=== PATIENT | female | born 1965 | race Caucasian/White ===

== ENCOUNTER → 2019-02-14 13:16 | Outpatient (CLI) | payer OTHER, SELFPAY | PROVIDERS: Family Provider Family Medicine; PCP Family Medicine; Visit Provider Physician Assistant | DX: R30.0 Dysuria (principal) | CPT/HCPCS: 87086 ==

== ENCOUNTER → 2019-02-18 12:35 | Outpatient (CLI) | payer OTHER, SELFPAY | PROVIDERS: PCP Family Medicine; Visit Provider Family Medicine | DX: R20.2 Paresthesia of skin (principal) | CPT/HCPCS: 95885; 95886; 95908 ==

== ENCOUNTER → 2019-03-22 08:48 | Outpatient (CLI) | payer OTHER, SELFPAY ==
--- NOTE | 2019-03-22 08:50 | DI.RAD.S_ITS ---
PROCEDURE: XR FOOT LT MIN 3V INDICATIONS: Left foot paresthesias TECHNIQUE: 3 views of the foot were acquired. COMPARISON: None. FINDINGS: Bones: No fractures or dislocations. No suspicious bony lesions. Soft tissues: No tibiotalar joint effusion. Achilles tendon appears normal. IMPRESSION: Minimal degenerative thinning of the first MTP joint, no trauma found, no microvascular calcifications seen. Dictated by: Nestor Whatley M.D. on 03/22/2019 at 9:41 Approved by: Nestor Whatley M.D. on 03/22/2019 at 9:41
--- NOTE | 2019-03-22 08:50 | DI.RAD.S_ITS ---
PROCEDURE: XR LUMBAR SPINE MIN 4V INDICATIONS: Lumbosacral spondylosis TECHNIQUE: 4 views of the lumbar spine were acquired. COMPARISON: None. FINDINGS: Bones: 5 nonrib-bearing vertebrae are present. There is normal bony alignment. No vertebral body compression fractures. No suspicious bony lesions. Degenerative disc disease is minimal along the lumbosacral spine except at L4-L5 where moderate degenerative disc disease can be seen with disc height reduction and facet osteoarthritis at this level and at L5-S1 is moderate to moderately severe. Soft tissues: Overlying bowel gas pattern is normal. No suspicious soft tissue calcifications. Oblique images: No pars defects. IMPRESSION: No compression fracture found. Moderate degenerative disc disease is present at L45 and present to a slightly lesser degree at L5-S1 with associated facet osteoarthritis moderate at L4-5 and moderately severe at L5-S1. Spinal and foraminal stenosis at these 2 levels would be expected. Dictated by: Nestor Whatley M.D. on 03/22/2019 at 9:42 Approved by: Nestor Whatley M.D. on 03/22/2019 at 9:43
== END ==
PROVIDERS: PCP Family Medicine; Visit Provider Physical Medicine & Rehabilitation
DX: M47.817 Spondylosis without myelopathy or radiculopathy, lumbosacral region (principal); R20.2 Paresthesia of skin; M19.072 Primary osteoarthritis, left ankle and foot; M51.36 Other intervertebral disc degeneration, lumbar region; M51.37 Other intervertebral disc degeneration, lumbosacral region; M47.816 Spondylosis without myelopathy or radiculopathy, lumbar region
CPT/HCPCS: 72110; 73630

== ENCOUNTER → 2019-03-30 18:21 | Outpatient (CLI) | payer OTHER, SELFPAY ==
--- NOTE | 2019-03-30 18:23 | DI.MRI.S_ITS ---
PROCEDURE: MR LUMBAR SPINE WO CON INDICATIONS: Lumbosacral spondylosis with left lower extremity TECHNIQUE: Noncontrast sagittal T1 spin echo and T2 fast echo, sagittal STIR, axial T1 and T2 fast spin echo through the lumbar spine. In cases with scoliosis, additional coronal T2 fast spin echo may be performed. COMPARISON: None. FINDINGS: Image quality: Excellent. Alignment and Curvature: There is normal bony alignment. Bone Marrow: Reactive endplate change is noted adjacent to the L4-L5 and L5-S1 discs. Benign intraosseous hemangiomas noted in the L1 vertebral body.. No acute vertebral body compression fractures. Spinal Cord: Conus medullaris terminates at the L1 level. Visualized cord demonstrates normal signal and size. Paraspinous Soft Tissues: No paravertebral masses. L1-L2: Loss of disc signal and slight loss of disc height. Mild, diffuse disc bulge. No central stenosis. No neural foraminal narrowing. No neural impingement. Focal high intensity zone within the posterior annulus compatible with a fissure. L2-L3: Loss of signal. No central stenosis. No neural foraminal narrowing. No neural impingement. L3-L4: Loss of the signal. Mild bilateral facet hypertrophy. Mild narrowing of the central canal. No neural foraminal narrowing. No neural impingement. L4-L5: Loss of disc signal and height. Mild, diffuse disc bulge. Mild bilateral facet hypertrophy. Mild ligamentum flavum hypertrophy. Mild to moderate narrowing of the central canal. Mild to moderate bilateral neural foraminal narrowing. No neural impingement. Focal high intensity zones noted in the annulus compatible with fissures. L5-S1: Loss of disc signal. Mild, diffuse disposed. Mild bilateral facet hypertrophy. No central stenosis. Mild bilateral neural foraminal narrowing. No neural impingement. Focal high intensity zones noted in the posterior annulus compatible with fissures. IMPRESSION: 1. Multilevel degenerative disc disease. 2. Multilevel facet arthropathy. 3. Mild to moderate L4-L5 central canal narrowing. Mild L3-L4 central canal narrowing. 4. Mild to moderate bilateral L4-L5 and neural foraminal narrowing. Mild bilateral L5-S1 neural foraminal narrowing. 5. No neural impingement. 6. L1-L2, L4-L5 and L5-S1 disc annulus fissures. Dictated by: Savanah Marie MD, PhD on 03/31/2019 at 17:00 Approved by: Savanah Marie MD, PhD on 03/31/2019 at 17:07
== END ==
PROVIDERS: PCP Family Medicine; Visit Provider Physical Medicine & Rehabilitation
DX: M47.816 Spondylosis without myelopathy or radiculopathy, lumbar region (principal); M47.817 Spondylosis without myelopathy or radiculopathy, lumbosacral region; M51.36 Other intervertebral disc degeneration, lumbar region; M51.37 Other intervertebral disc degeneration, lumbosacral region; M48.061 Spinal stenosis, lumbar region without neurogenic claudication; M48.07 Spinal stenosis, lumbosacral region; Q05.7 Lumbar spina bifida without hydrocephalus; R20.2 Paresthesia of skin
CPT/HCPCS: 72148

== ENCOUNTER → 2019-04-16 13:29 | Outpatient (CLI) | payer OTHER, SELFPAY ==
[2019-04-16 14:14] LABS: Appearance Urine UA CLEAR; Bilirubin Urine UA NEGATIVE (NEGATIVE); Color Urine UA YELLOW; Glucose Urine UA NEGATIVE (Negative); Ketones Urine UA NEGATIVE (NEGATIVE); Leukocyte Esterase Urine UA NEGATIVE (NEGATIVE); Nitrite Urine UA NEGATIVE (Negative); Occult Blood Urine UA TRACE-LYSED (Negative); Protein Urine UA NEGATIVE (Negative); Specific Gravity Urine UA <=1.005 (1.000-1.035); Urobilinogen Urine UA 0.2 E.U./dL (0.2)
== END ==
PROVIDERS: PCP Family Medicine; Visit Provider Family Medicine
DX: R30.0 Dysuria (principal)
CPT/HCPCS: 81003

== ENCOUNTER 2019-05-06 14:40 | Outpatient (CLI) | payer OTHER, SELFPAY ==
[2019-05-06] VITALS (7 sets, daily range): BP systolic 108–126; BP diastolic 72–83; PULSE 54–62; RESP 16; TEMP 36.8; O2SAT 96–98
--- NOTE | 2019-05-06 14:42 | DI.RAD.S_ITS ---
PROCEDURE: PAIN L/S TRANSFORAMINAL INJECT INDICATIONS: SPONDYLOSIS FINDINGS: Fluoroscopic spot filming was performed to verify placement of spinal needles at the left L4-5 neural foramen region level(s), as labeled on the films. Appropriate location(s) of the needle tip(s) was confirmed by injection of iodinated contrast. IMPRESSION: Successful left-sided needle tip localization were L4-L5 transforaminal epidural steroid injection. Dictated by: Nestor Whatley M.D. on 05/06/2019 at 16:21 Approved by: Nestor Whatley M.D. on 05/06/2019 at 16:22
--- NOTE | 2019-05-06 15:06 | P.PCN_ITS ---
Procedures Date/Time Date of procedure: 05/06/19 Time of procedure: 15:06 General Procedure description: PREOP DIAGNOSIS 1. FORMAINAL STENOSIS WITH LE SYMPTOMS POST OP DIAGNOSIS 1. FORMAINAL STENOSIS WITH LE SYMPTOMS PROCEDURES 1. FLUOROSCOPICALLY GUIDED CONTRAST CONTROLLED TRANSFORAMINAL EPIDURAL STEROID INJECTION - LEFT L4/5 PHYSICIAN: Royce Wilkins DO INDICATIONS: Dae is referred by Dr. Wellington for treatment of Foraminal Stenosis with Left LE Symptoms FINDINGS Foraminal Nerve Root Compression secondary to disc disease and facet hypertrophy DESCRIPTION OF PROCEDURE: Following review of allergy and review of potential side effects and complications, including, but not necessarily limited to, infection, allergic reaction, local tissue breakdown, stroke, temporary or permanent nerve injury, paralysis, and possible , the patient indicated that the patient understood and agreed to proceed. An informed consent document was signed by the patient, witnessed by a nurse, and placed in the patient's chart. Additionally, other treatment options including medications, modalities, and physical therapy were reviewed with the patient. After review of previous anaesthesic history and IV conscious sedation the patient was deemed safe to proceed with todays procedure with IV conscious sedation as ASA class II designation. Safety time-out was performed to confirm patient ID, procedure to be performed and site of procedure. IV sedation was accomplished with a combination of 2mg of Versed and 50mcg of Fentanyl administered by the RN after DO order, titrated to patient comfort during the course of the procedure while the patient remained responsive to all verbal commands In the prone position following sterile prep and drape of the lumbar region, the left L4/5 posterior neuroforamen was identified fluoroscopically. The skin was anesthetized via a 25-gauge 1.5-inch needle with 1% lidocaine solution. At this point, a 25-gauge 3.5-inch spinal needle was atraumatically introduced and advanced under fluoroscopic guidance through the posterior left L4/5 neuroforamen to approximately the anterior aspect of the canal. Depth was confirmed on lateral view. Following negative aspiration, injection of appro ximately 1.5 cc of Isovue 200 under live fluoroscopy in the AP view confirmed excellent flow along the nerve root, into the epidural space without vascular or intrathecal uptake observed Radiological data, including multiple fluoroscopic views of the lumbosacral spine, reveal a spinal needle at the left L4/5 posterior neuroforamen. Subsequent views show flow of contrast material flowing superiorly and inferiorly along the nerve root confirming epidural flow. Subsequently, a test dose of 1.5 cc of 1% lidocaine solution was administered and patient was observed for two minutes for signs or symptoms of complications, including abdominal pain, shortness of breath, bilateral upper or lower extremity weakness, nausea and vomiting, prior to steroid injection. At this point, a total of 3cc or 20mg of dexamethasone and 6mg betamethasone was injected without incident. The procedure tolerated the procedure well without signs or symptoms of complications prior to transfer to the recovery area continued monitoring without incident. The patient was then transferred to the recovery area where they were observed for an appropriate time after the injection. The patient reported a VAS score of 7 prior to the procedure and a post- procedure VAS of 0. Total Fluoroscopy Time: 20.9 seconds Total Conscious Sedation Time: 24min POST OP INSTRUCTIONS The patient was provided a Pain Log to continue to record their response to the target-specific procedure prior to follow-up visit with their referring physician. Additionally, specific post-injection care instructions and a contact number to our office were provided if concerns arise regarding possible complications associated with the procedure are suspected. Royce Wilkins DO Complications: none
[2019-05-06] MEDS: MIDAZOLAM 5 MG/5 ML VIAL IV (15:23)
[2019-05-06] MEDS: fentaNYL 100 MCG/2 ML INJ 50 MCG IV (15:23)
[2019-05-06] MEDS: BUPIVACAINE 0.25% (PF) VIAL 2 ML INJ (15:32)
[2019-05-06] MEDS: IOPAMIDOL 15 ML VIAL 3 ML INJ (15:32)
[2019-05-06] MEDS: DEXAMETHASONE 10 MG/ML VIAL 20 MG INJ (15:33)
[2019-05-06] MEDS: BETAMETHASONE 30 MG/5 ML MDV 6 MG INJ (15:33)
--- NOTE | 2019-05-06 15:38 | PC.NURSE ---
ASSISTING PT OFF TABLE AND TRANSPORTING TO POST PROC AREA IN STABLE CONDITION.
== END 2019-05-06 16:24 | disposition home or self-care (01) ==
LOC: RAD 14:41
PROVIDERS: PCP Family Medicine; Visit Provider Physical Medicine & Rehabilitation
DX: M48.061 Spinal stenosis, lumbar region without neurogenic claudication (principal); M51.16 Intervertebral disc disorders with radiculopathy, lumbar region
CPT/HCPCS: 64483; 99152; J0702; J1100; J2250; J3010

== ENCOUNTER → 2019-07-24 08:43 | Outpatient (CLI) | payer OTHER, SELFPAY ==
[2019-07-24 09:34] LABS: Add Manual Diff / Slide Review NO; Basophils Absolute Auto 0 /uL (0-100); Basophils Percent Auto 0.2 % (0-2); Eosinophils Absolute Auto 200 /uL (0-450); Hematocrit 39.5 % (36-46); Hemoglobin 13.2 g/dL (12.0-16.0); Lymphocytes Absolute Auto 1800 /uL (1100-4500); Lymphocytes Percent Auto 36.1 % (25-40); Mean Corpuscular HGB Conc 33.5 % (30-36); Mean Corpuscular Hemoglobin 29.5 PG (26-34); Mean Corpuscular Volume 88.3 fL (80-100); Monocytes Absolute Auto 400 /uL (0-900); Monocytes Percent Auto 7.7 % (3-14); Neutrophils Absolute Auto 2500 /uL (1500-7000); Platelet Count 209 X10^3/uL (150-400); Red Blood Cell Count 4.48 X10^6/uL (4.0-5.2); Red Cell Distribution Width 13.6 % (11.6-14.8); White Blood Cell Count 4.9 X10^3/uL (4.5-11.0)
[2019-07-24 09:51] LABS: Alanine Aminotransferase 15 IU/L (<35); Albumin 4.4 g/dL (3.5-5.0); Albumin Globulin Ratio 1.7 (1.0-2.8); Alkaline Phosphatase 64 U/L (38-126); Aspartate Aminotransferase 20 IU/L (14-36); BUN Creatinine Ratio 25.7 (6-22); Bilirubin Total 0.7 mg/dL (0.2-1.3); Blood Urea Nitrogen 18 mg/dL (7-17); Calcium 9.5 mg/dL (8.4-10.2); Carbon Dioxide 30 mmol/L (22-32); Chloride 105 mmol/L (98-107); Cholesterol 218 mg/dL (140-199); Estimated Glomerular Filt Rate > 60.0 mL/min (>60); Globulin 2.6 g/dL (1.7-4.1); Glucose 96 mg/dL (70-100); HDL Cholesterol 74 mg/dL (40-60); HEMOLYSIS < 15 (0-50); LDL Cholesterol Calculated 128 mg/dL (<100); Potassium 4.6 mmol/L (3.4-5.1); Sodium 142 mmol/L (137-145); Triglycerides 78 mg/dL (35-150)
[2019-07-24 10:20] LABS: Thyroid Stimulating Hormone 1.09 uIU/mL (0.47-4.68)
== END ==
PROVIDERS: PCP Family Medicine; Visit Provider Physician Assistant
DX: Z00.00 Encounter for general adult medical examination without abnormal findings (principal); Z13.220 Encounter for screening for lipoid disorders; Z13.6 Encounter for screening for cardiovascular disorders
CPT/HCPCS: 36415; 80053; 80061; 84443; 85025

== ENCOUNTER → 2020-04-22 14:08 | Outpatient (CLI) | payer OTHER, SELFPAY ==
--- NOTE | 2020-04-22 14:10 | DI.MG.S_ITS ---
BILATERAL DIGITAL SCREENING MAMMOGRAM 3D/2D WITH CAD: 04/22/2020 CLINICAL: Routine screening. Family history of breast cancer. Comparison is made to exams dated: 08/31/2018 mammogram, 07/30/2017 mammogram, and 07/04/2016 mammogram - [facility]. The tissue of both breasts is heterogeneously dense. This may lower the sensitivity of mammography. Current study was also evaluated with a Computer Aided Detection (CAD) system. No significant masses, calcifications, or other findings are seen in either breast. There has been no significant interval change. IMPRESSION: NEGATIVE There is no mammographic evidence of malignancy. A 1 year screening mammogram is recommended. This exam was interpreted at Station ID: [id number]. NOTE: For mammograms, a report in lay terms will be sent to the patient. Approximately 15% of breast malignancies will not be visualized mammographically. In the management of a palpable breast mass, a negative mammogram must not discourage biopsy of a clinically suspicious lesion. Electronically Signed By: Renaldo haq/maria fernanda:04/24/2020 07:57:56 letter sent: Normal Exam ACR BI-RADS Category 1: Negative [id number]
== END ==
PROVIDERS: PCP Family Medicine; Referring Provider Family Medicine; Visit Provider Family Medicine
DX: Z12.31 Encounter for screening mammogram for malignant neoplasm of breast (principal); Z80.3 Family history of malignant neoplasm of breast
CPT/HCPCS: 77063; 77067

== ENCOUNTER → 2020-10-03 15:32 | Outpatient (CLI) | payer OTHER, SELFPAY ==
[2020-10-03 16:28] LABS: Hematocrit 38.5 % (36-46); Hemoglobin 13.1 g/dL (12.0-16.0); Mean Corpuscular HGB Conc 34.1 % (30-36); Mean Corpuscular Volume 88.2 fL (80-100); Platelet Count 199 X10^3/uL (150-400); Red Blood Cell Count 4.37 X10^6/uL (4.0-5.2); White Blood Cell Count 5.3 X10^3/uL (4.5-11.0)
[2020-10-03 16:44] LABS: Blood Urea Nitrogen 17 mg/dL (7-17); Calcium 9.4 mg/dL (8.4-10.2); Carbon Dioxide 29 mmol/L (22-32); Chloride 103 mmol/L (98-107); Cholesterol 264 mg/dL (140-199); Estimated Glomerular Filt Rate > 60.0 mL/min (>60); Glucose 95 mg/dL (70-100); HDL Cholesterol 93 mg/dL (40-60); HEMOLYSIS < 15 (0-50); LDL Cholesterol Calculated 150 mg/dL (<100); Sodium 139 mmol/L (137-145); Triglycerides 103 mg/dL (35-150)
[2020-10-03 17:05] LABS: Vitamin D 25 Hydroxy (D3) 19.4 ng/mL (30.0-100.0)
[2020-10-03 17:17] LABS: TSH w/ Reflex to FT4 3.73 uIU/mL (0.47-4.68)
== END ==
PROVIDERS: PCP Student in an Organized Health Care Education/Training Program; Referring Provider Student in an Organized Health Care Education/Training Program; Visit Provider Student in an Organized Health Care Education/Training Program
DX: E03.9 Hypothyroidism, unspecified (principal); F32.9 Major depressive disorder, single episode, unspecified; Z13.220 Encounter for screening for lipoid disorders; E55.9 Vitamin D deficiency, unspecified; F41.0 Panic disorder [episodic paroxysmal anxiety]; Z79.899 Other long term (current) drug therapy
CPT/HCPCS: 36415; 80048; 80061; 82306; 84443; 85027

== ENCOUNTER → 2021-04-10 11:48 | Outpatient (CLI) | payer OTHER, SELFPAY ==
--- NOTE | 2021-04-10 11:50 | DI.RAD.S_ITS ---
PROCEDURE: XR CHEST 2V INDICATIONS: Chest wall pain TECHNIQUE: 2 views of the chest were acquired. COMPARISON: None. FINDINGS: Surgical changes and devices: None. Lungs and pleura: Lungs are clear. No pleural effusions or pneumothorax. Mediastinum: Mediastinal contours are normal. Heart size is normal. Bones and chest wall: No suspicious bony abnormalities. Soft tissues appear unremarkable. IMPRESSION: No source for chest pain identified radiographically. Dictated by: Wally Washburn RR Interpreted: Renaldo Duff MD on 04/10/2021 at 12:45 Transcribed by: MARC on 04/10/2021 at 12:46 Approved by: Renaldo Duff M.D. on 04/10/2021 at 15:02
== END ==
PROVIDERS: PCP Student in an Organized Health Care Education/Training Program; Referring Provider Student in an Organized Health Care Education/Training Program; Visit Provider Student in an Organized Health Care Education/Training Program
DX: R07.89 Other chest pain (principal)
CPT/HCPCS: 71046

== ENCOUNTER → 2021-05-03 09:12 | Outpatient (CLI) | payer OTHER, SELFPAY ==
--- NOTE | 2021-05-03 09:12 | DI.MG.S_ITS ---
BILATERAL DIGITAL DIAGNOSTIC MAMMOGRAM 3D/2D: 05/03/2021 CLINICAL: Left breast/chest pain. Comparison is made to exams dated: 04/22/2020 mammogram - [facility], 08/31/2018 mammogram, and 07/30/2017 mammogram - [facility]. The tissue of both breasts is heterogeneously dense. This may lower the sensitivity of mammography. No significant masses, calcifications, or other findings are seen in either breast. IMPRESSION: INCOMPLETE: NEEDS ADDITIONAL IMAGING EVALUATION There is no abnormality seen in the left breast to correspond with the area of clinical concern and pain, however, ultrasound is recommended and is scheduled to immediately follow this exam. This exam was interpreted at Station ID: [id number]. NOTE: For mammograms, a report in lay terms will be sent to the patient. Approximately 15% of breast malignancies will not be visualized mammographically. In the management of a palpable breast mass, a negative mammogram must not discourage biopsy of a clinically suspicious lesion. Electronically Signed By: Renaldo Duff M.D. aty/:05/03/2021 11:00:30 ACR BI-RADS Category 0: Incomplete [id number]
--- NOTE | 2021-05-03 09:12 | DI.US.S_ITS ---
ULTRASOUND OF LEFT BREAST AND AXILLA: 05/03/2021 CLINICAL: Diffuse left breast pain. Comparison is made to exams dated: 05/03/2021 mammogram, 04/22/2020 mammogram - [facility], 08/31/2018 mammogram, 07/30/2017 mammogram, 07/04/2016 mammogram, and 07/04/2016 ultrasound - [facility]. Color flow and real-time ultrasound of the left breast axilla were performed. Rowe scale images of the real-time examination were reviewed. There is a 0.7 cm x 0.5 cm x 0.6 cm oval cyst in the left breast at 11 o'clock middle depth 2 cm from the nipple. This oval cyst is hypoechoic with internal echoes and no posterior acoustic shadowing or enhancement. This was not seen on today's mammogram. Color flow imaging demonstrates that there is no vascularity present. There also is a 0.4 cm x 0.3 cm x 0.4 cm oval cyst in the left breast at 1 o'clock posterior depth 5 cm from the nipple. This oval cyst is hypoechoic with internal echoes. This was not seen on today's mammogram. Color flow imaging demonstrates that there is no vascularity present. Additionally, there is heterogeneous, dense fibroglandular tissue in areas of patient pain without focal mass or disturbed echotexture. No significant abnormalities were seen sonographically in the left axilla. IMPRESSION: PROBABLY BENIGN The 0.7 cm x 0.5 cm x 0.6 cm oval cyst in the left breast at 11 o'clock middle depth is consistent with a complicated cyst and is probably benign. The 0.4 cm x 0.3 cm x 0.4 cm oval cyst in the left breast at 1 o'clock posterior depth is consistent with a complicated cyst and is probably benign. There is no abnormality seen in the left breast to correspond with the area of clinical concern and pain in the left axilla in the sub-areolar depth. Recommend clinical follow up for persistent or worsening symptoms, or development of any clinically suspicious findings. A follow-up left mammogram and an ultrasound in 6 months is recommended to demonstrate stability. Findings and recommendations were conveyed to the patient during today's evaluation. This exam was interpreted at Station ID: [id number]. Electronically Signed By: Renaldo Duff M.D. aty/:05/03/2021 17:52:25 letter sent: Clinical Evaluation Ultrasound BI-RADS: 3 Probably benign
== END ==
PROVIDERS: PCP Student in an Organized Health Care Education/Training Program; Referring Provider Student in an Organized Health Care Education/Training Program; Visit Provider Student in an Organized Health Care Education/Training Program
DX: N60.02 Solitary cyst of left breast (principal); N64.4 Mastodynia; R92.2 Inconclusive mammogram; R07.89 Other chest pain
CPT/HCPCS: 76642; 77066; G0279

== ENCOUNTER → 2021-10-26 09:19 | Outpatient (CLI) | payer OTHER, SELFPAY ==
--- NOTE | 2021-10-26 09:20 | DI.MG.S_ITS ---
UNILATERAL LEFT DIGITAL DIAGNOSTIC MAMMOGRAM 3D/2D: 10/26/2021 CLINICAL: Short term follow up for the left breast. Comparison is made to exams dated: 05/03/2021 ultrasound, 05/03/2021 mammogram, and 04/22/2020 mammogram - [facility]. The tissue of left breast is heterogeneously dense. This may lower the sensitivity of mammography. No significant masses, calcifications, or other findings are seen in the breast. IMPRESSION: INCOMPLETE: NEEDS ADDITIONAL IMAGING EVALUATION There is no mammographic evidence of malignancy. A targeted ultrasound of the left breast is recommended to evaluate the previous ultrasound findings and will be performed immediately following this exam. This exam was interpreted at Station ID: [id number]. NOTE: For mammograms, a report in lay terms will be sent to the patient. Approximately 15% of breast malignancies will not be visualized mammographically. In the management of a palpable breast mass, a negative mammogram must not discourage biopsy of a clinically suspicious lesion. Electronically Signed By: Alaina flores/:10/29/2021 09:55:29 Entry: - 10/29/2021 09:56:30 ACR BI-RADS Category 0: Incomplete [id number]
--- NOTE | 2021-10-26 09:20 | DI.US.S_ITS ---
ULTRASOUND OF LEFT BREAST: 10/26/2021 CLINICAL: 6 month follow-up of cysts. Comparison is made to exams dated: 10/26/2021 mammogram, 05/03/2021 ultrasound, and 05/03/2021 mammogram - [facility]. Color flow ultrasound of the left breast was performed on the areas of interest. Rowe scale images of the real-time examination were reviewed. There is a stable 0.7 cm x 0.5 cm x 0.6 cm oval cyst in the left breast at 11 o'clock middle depth 2 cm from the nipple. This oval cyst is hypoechoic with internal echoes and no posterior acoustic shadowing or enhancement. This was not seen on the prior mammogram. Color flow imaging demonstrates that there is no vascularity present. There also is a stable 0.4 cm x 0.3 cm x 0.4 cm oval cyst in the left breast at 1 o'clock posterior depth 5 cm from the nipple. This oval cyst is hypoechoic with internal echoes. This was not seen on the prior mammogram. Color flow imaging demonstrates that there is no vascularity present. IMPRESSION: PROBABLY BENIGN The stable 0.7 cm x 0.5 cm x 0.6 cm oval cyst in the left breast at 11 o'clock middle depth is consistent with a complicated cyst and is probably benign. The stable 0.4 cm x 0.3 cm x 0.4 cm oval cyst in the left breast at 1 o'clock posterior depth is consistent with a complicated cyst and is probably benign. A follow-up diagnostic mammogram and a left ultrasound in 6 months is recommended to demonstrate stability. This exam was interpreted at Station ID: [id number]. Electronically Signed By: Alaina flores/:10/29/2021 09:27:01 letter sent: Followup Recommended Ultrasound BI-RADS: 3 Probably benign
== END ==
PROVIDERS: PCP Student in an Organized Health Care Education/Training Program; Referring Provider Student in an Organized Health Care Education/Training Program; Visit Provider Student in an Organized Health Care Education/Training Program
DX: R92.8 Other abnormal and inconclusive findings on diagnostic imaging of breast (principal); N60.02 Solitary cyst of left breast
CPT/HCPCS: 76642; 77065; G0279

== ENCOUNTER → 2022-03-25 09:58 | Outpatient (CLI) | payer OTHER, SELFPAY ==
[2022-03-25 11:00] LABS: Influenza A - CEPHEID Flu A NEGATIVE (NEGATIVE); Influenza B - CEPHEID Flu B NEGATIVE (NEGATIVE)
[2022-03-25 11:04] LABS: COVID-19 CEPHEID PCR (VTM/NP) Negative (Negative)
== END ==
PROVIDERS: PCP Student in an Organized Health Care Education/Training Program; Visit Provider Nurse Practitioner Critical Care Medicine
DX: R05.9 Cough, unspecified (principal); Z20.822 Contact with and (suspected) exposure to COVID-19
CPT/HCPCS: 0240U

== ENCOUNTER → 2022-06-25 08:32 | Outpatient (CLI) | payer OTHER, SELFPAY ==
--- NOTE | 2022-06-25 | DI.MG.S_ITS ---
BILATERAL DIGITAL DIAGNOSTIC MAMMOGRAM 3D/2D SHORT-TERM FOLLOW-UP: 06/25/2022 CLINICAL: Short term follow up of the left breast, due for bilateral imaging. Comparison is made to exams dated: 10/26/2021 mammogram, 05/03/2021 mammogram, and 04/22/2020 mammogram - [facility]. Both breasts are heterogeneously dense, which may obscure small masses (category c / 51-75% glandular tissue). No significant masses, calcifications, or other findings are seen in either breast. IMPRESSION: INCOMPLETE: NEEDS ADDITIONAL IMAGING EVALUATION A targeted ultrasound of the left breast is recommended and will be performed immediately following this exam. There is no abnormality seen in the left breast to correspond with the previous ultrasound finding. Based on Tyrer-Cuzick model (a risk assessment model), the patient's lifetime risk is 20.5% and her 10 year risk is 7.9%. If a patient has an elevated risk, a more comprehensive evaluation should be considered and/or a referral to a genetic counselor. The [place] [employer], [place] [employer], and NCCN Guidelines advise the consideration of Breast MRI as an adjunct to screening mammography in patients whose Lifetime risk to develop breast cancer is 20% or higher. This exam was interpreted at Station ID: [id number]. NOTE: For mammograms, a report in lay terms will be sent to the patient. Approximately 15% of breast malignancies will not be visualized mammographically. In the management of a palpable breast mass, a negative mammogram must not discourage biopsy of a clinically suspicious lesion. Electronically Signed By: Derrell Hays M.D. lc/:06/25/2022 09:31:08 ACR BI-RADS Category 0: Incomplete 3340F
--- NOTE | 2022-06-25 08:34 | DI.US.S_ITS ---
ULTRASOUND OF LEFT BREAST: 06/25/2022 CLINICAL: 6 month follow-up of cysts. Comparison is made to exams dated: 06/25/2022 mammogram, 10/26/2021 ultrasound, 10/26/2021 mammogram, 05/03/2021 ultrasound, 05/03/2021 mammogram, and 04/22/2020 mammogram - [facility]. Color flow and real-time ultrasound of the left breast were performed. Rowe scale images of the real-time examination were reviewed. There is a stable 0.4 cm x 0.5 cm x 0.5 cm oval complicated cyst in the left breast at 11 o'clock middle depth 2 cm from the nipple. This was not seen on the prior mammogram. There also is a stable 0.7 cm x 0.3 cm x 0.5 cm oval complicated cyst in the left breast at 1 o'clock posterior depth 5 cm from the nipple. This was not seen on the prior mammogram. IMPRESSION: PROBABLY BENIGN The stable 0.4 cm x 0.5 cm x 0.5 cm oval complicated cyst in the left breast at 11 o'clock middle depth is consistent with a complicated cyst and is probably benign. The stable 0.7 cm x 0.3 cm x 0.5 cm oval complicated cyst in the left breast at 1 o'clock posterior depth is consistent with a complicated cyst and is probably benign. A follow-up mammogram and an ultrasound in 12 months is recommended. This exam was interpreted at Station ID: [id number]. Electronically Signed By: Derrell Hays M.D. lc/:06/25/2022 09:40:11 letter sent: Followup Recommended Ultrasound BI-RADS: 3 Probably benign
== END ==
PROVIDERS: PCP Student in an Organized Health Care Education/Training Program; Referring Provider Student in an Organized Health Care Education/Training Program; Visit Provider Student in an Organized Health Care Education/Training Program
DX: R92.8 Other abnormal and inconclusive findings on diagnostic imaging of breast (principal); N60.02 Solitary cyst of left breast
CPT/HCPCS: 76642; 77066; G0279

== ENCOUNTER → 2022-07-04 10:14 | Outpatient (CLI) | payer OTHER, SELFPAY ==
--- NOTE | 2022-07-04 10:14 | DI.RAD.S_ITS ---
PROCEDURE: XR CHEST 2V INDICATIONS: recurrent cough x 5 months, chest tightness TECHNIQUE: 2 views of the chest were acquired. COMPARISON: [facility], CR, XR CHEST 2V, 04/10/2021, 11:54. FINDINGS: Surgical changes and devices: None. Lungs and pleura: Lungs are clear. No pleural effusions or pneumothorax. Mediastinum: Mediastinal contours are normal. Heart size is normal. Bones and chest wall: No suspicious bony abnormalities. Soft tissues appear unremarkable. IMPRESSION: No acute cardiopulmonary abnormality. Dictated by: Bao Campbell M.D. on 07/04/2022 at 10:35 Approved by: Bao Campbell M.D. on 07/04/2022 at 10:35
== END ==
PROVIDERS: PCP Student in an Organized Health Care Education/Training Program; Referring Provider Student in an Organized Health Care Education/Training Program; Visit Provider Student in an Organized Health Care Education/Training Program
DX: R05.8 Other specified cough (principal); R07.89 Other chest pain
CPT/HCPCS: 71046

== ENCOUNTER → 2022-12-09 10:34 | Outpatient (CLI) | payer OTHER, SELFPAY | PROVIDERS: PCP Student in an Organized Health Care Education/Training Program; Visit Provider Registered Nurse | DX: J02.9 Acute pharyngitis, unspecified (principal) | CPT/HCPCS: 87070 ==

== ENCOUNTER → 2022-12-30 16:38 | Outpatient (CLI) | payer OTHER, SELFPAY ==
--- NOTE | 2022-12-30 16:40 | DI.RAD.S_ITS ---
PROCEDURE: XR FOOT RT MIN 3V INDICATIONS: Medial bony growth TECHNIQUE: 3 views of the foot were acquired. COMPARISON: [facility], CR, XR FOOT LT MIN 3V, 03/22/2019, 8:50. FINDINGS: Bones: [id number] hallux valgus is seen. No fractures or dislocations. Osteoarthritic changes are noted in right foot more notably at 1st MTP joint. Os navicularis is seen. No suspicious bony lesions. Soft tissues: No tibiotalar joint effusion. Achilles tendon appears normal. IMPRESSION: Presence of os navicularis which corresponds to patient's reported area of bony growth. Mild right foot osteoarthritis. [id number] hallux valgus. No fracture or dislocation. Dictated by: Josh Valdez M.D. on 12/30/2022 at 17:24 Approved by: Josh Valdez M.D. on 12/30/2022 at 17:24
== END ==
PROVIDERS: PCP Student in an Organized Health Care Education/Training Program; Referring Provider Student in an Organized Health Care Education/Training Program; Visit Provider Student in an Organized Health Care Education/Training Program
DX: M19.071 Primary osteoarthritis, right ankle and foot (principal); M20.11 Hallux valgus (acquired), right foot; M77.51 Other enthesopathy of right foot and ankle; M79.671 Pain in right foot
CPT/HCPCS: 73630

== ENCOUNTER → 2023-03-07 14:10 | Outpatient (CLI) | payer OTHER, SELFPAY ==
--- NOTE | 2023-03-07 14:11 | DI.RAD.S_ITS ---
PROCEDURE: XR FOOT LT MIN 3V INDICATIONS: LEFT FOOT PAIN TECHNIQUE: 3 views of the foot were acquired. COMPARISON: [facility], , XR FOOT RT MIN 3V, 12/30/2022, 16:37. FINDINGS: Bones: No fractures or dislocations. No suspicious bony lesions. Mild hallux valgus and bunion. Mild 1st MTP degenerative change. Soft tissues: No tibiotalar joint effusion. Achilles tendon appears normal. IMPRESSION: Hallux valgus, bunion, 1st MTP degenerative change. Dictated by: Clifton Ramirez M.D. on 03/07/2023 at 18:37 Approved by: Clifton Ramirez M.D. on 03/07/2023 at 18:39
--- NOTE | 2023-03-07 14:11 | DI.RAD.S_ITS ---
PROCEDURE: XR LUMBAR SPINE MIN 4V INDICATIONS: LEFT FOOT PAIN TECHNIQUE: 5 views of the lumbar spine were acquired, including bilateral oblique views. COMPARISON: [facility], CR, XR LUMBAR SPINE MIN 4V, 03/22/2019, 8:50. FINDINGS: Bones: 5 nonrib-bearing vertebrae are present. There is normal bony alignment. No vertebral body compression fractures. No suspicious bony lesions. Severe disc height loss at L4-L5. Prominent lower lumbar facet arthropathy. Degenerative disc space loss has progressed. Soft tissues: Overlying bowel gas pattern is normal. No suspicious soft tissue calcifications. Oblique images: No pars defects. IMPRESSION: Degenerative change. No acute bony abnormality. Dictated by: Clifton Ramirez M.D. on 03/07/2023 at 18:41 Approved by: Clifton Ramirez M.D. on 03/07/2023 at 18:42
== END ==
PROVIDERS: PCP Pediatrics; Referring Provider Physical Medicine & Rehabilitation; Visit Provider Physical Medicine & Rehabilitation
DX: M47.817 Spondylosis without myelopathy or radiculopathy, lumbosacral region (principal); M20.12 Hallux valgus (acquired), left foot; M21.612 Bunion of left foot; M79.672 Pain in left foot; R20.2 Paresthesia of skin
CPT/HCPCS: 72110; 73630

== ENCOUNTER → 2023-04-17 09:03 | Outpatient (CLI) | payer OTHER, SELFPAY | PROVIDERS: Family Provider Pediatrics; PCP Pediatrics; Referring Provider Physical Medicine & Rehabilitation; Visit Provider Physical Medicine & Rehabilitation | DX: M51.26 Other intervertebral disc displacement, lumbar region (principal); R20.2 Paresthesia of skin | CPT/HCPCS: 95886; 95911 ==

== ENCOUNTER → 2023-05-26 09:01 | Outpatient (CLI) | payer OTHER, SELFPAY ==
--- NOTE | 2023-05-26 09:02 | DI.MRI.S_ITS ---
PROCEDURE: MR LUMBAR SPINE WO CON INDICATIONS: LEFT LE PARASTHESIAS AND FOOT DROP TECHNIQUE: Noncontrast sagittal T1 spin echo and T2 fast echo, sagittal STIR, and T2 fast spin echo through the lumbar spine. In cases with scoliosis, additional coronal T2 fast spin echo may be performed. COMPARISON: [facility], MR, MR LUMBAR SPINE WO CON, 03/30/2019, 18:32. FINDINGS: Image quality: Excellent. Alignment and Curvature: Straightening of the normal lumbar lordosis. No spondylolisthesis. Bone Marrow: Degenerative endplate changes, worse at L4-5 (Modic type 2). Marrow is of normal overall signal. No acute vertebral body compression fractures. Spinal Cord: Conus medullaris terminates at the L1-L2 level. Visualized cord demonstrates normal signal and size. Paraspinous Soft Tissues: No paravertebral masses. T12-L1: No central canal or neural foraminal stenosis. L1-L2: Disc desiccation and height loss with a small posterior disc bulge. Facet arthropathy. No central canal or neural foraminal stenosis. L2-L3: Disc desiccation. Facet arthropathy. No central canal or neural foraminal stenosis. L3-L4: Disc desiccation. Facet arthropathy and thickened ligamentum flavum. Mild epidural lipomatosis. No central canal or neural foraminal stenosis. L4-L5: Disc desiccation height loss with small posterior disc bulge. Facet arthropathy and thickening of ligamentum flavum. Epidural lipomatosis. Stable mild to moderate central canal stenosis. Hquz-zh-fileariw bilateral neural foraminal stenosis is stable. L5-S1: Disc desiccation height loss with small posterior disc bulge. Facet arthropathy. No central canal stenosis. Progression of moderate to severe left neural foraminal stenosis. Stable right mild neural foraminal stenosis. IMPRESSION: Multilevel degenerative changes of the lumbar spine with progression at L5-S1 with new moderate to severe left neural foraminal stenosis. Otherwise, stable degenerative changes compared to prior. Dictated by: Fam Quinn M.D. on 05/26/2023 at 12:50 Approved by: Fam Quinn M.D. on 05/26/2023 at 12:55
== END ==
PROVIDERS: Family Provider Pediatrics; PCP Pediatrics; Referring Provider Physical Medicine & Rehabilitation; Visit Provider Physical Medicine & Rehabilitation
DX: M48.07 Spinal stenosis, lumbosacral region (principal); M47.26 Other spondylosis with radiculopathy, lumbar region; M48.061 Spinal stenosis, lumbar region without neurogenic claudication; M47.27 Other spondylosis with radiculopathy, lumbosacral region; R20.2 Paresthesia of skin; M79.671 Pain in right foot
CPT/HCPCS: 72148

== ENCOUNTER 2023-06-10 13:31 | Outpatient (CLI) | payer OTHER, SELFPAY ==
[2023-06-10] VITALS (8 sets, daily range): BP systolic 111–142; BP diastolic 70–90; PULSE 52–99; RESP 10–20; TEMP 36.3; O2SAT 96–100
--- NOTE | 2023-06-10 13:32 | DI.RAD.S_ITS ---
PROCEDURE: PAIN L/S TRANSFORAMINAL INJECT INDICATIONS: SPONDYLOSIS COMPARISON: [facility], MR, MR LUMBAR SPINE WO CON, 05/26/2023, 9:35. [facility], CR, XR LUMBAR SPINE MIN 4V, 03/07/2023, 14:16. [facility], XA, PAIN L/S TRANSFORAMINAL INJECT, 05/06/2019, 15:31. FINDINGS: Fluoroscopic spot filming was performed to verify placement of a spinal needle at the L4-L5 level, as labeled on the films. Appropriate location of the needle tip was confirmed by injection of iodinated contrast. IMPRESSION: Intraprocedural examination within normal limits. Dictated by: Vasiliy Arboleda M.D. on 06/10/2023 at 18:20 Approved by: Vasiliy Arboleda M.D. on 06/10/2023 at 18:20
[2023-06-10] MEDS: MIDAZOLAM 2 MG/2 ML VIAL IV (14:16)
[2023-06-10] MEDS: BETAMETHASONE 30 MG/5 ML MDV 6 MG INJ (14:21)
[2023-06-10] MEDS: BUPIVACAINE 0.25% (PF) VIAL 2 ML INJ (14:21)
[2023-06-10] MEDS: DEXAMETHASONE 10 MG/ML VIAL INJ (14:22)
[2023-06-10] MEDS: iopamidoL 15 ML VIAL 3 ML INJ (14:23)
--- NOTE | 2023-06-10 14:34 | P.PCN_ITS ---
Date/Time/Diagnoses Date of procedure: 06/10/23 Time of procedure: 14:34 Pre-procedure diagnosis: 1. FORAMINAL STENOSIS WITH LE SYMPTOMS Post-procedure diagnosis: same Procedure Notes Procedure: 1. FLUOROSCOPICALLY GUIDED CONTRAST CONTROLLED TRANSFORAMINAL EPIDURAL STEROID INJECTION - LEFT L4/5 Indications: Dae is referred by Dr. Ko for treatment of Foraminal Stenosis with Left LE Symptoms Physician: Royce Wilkins Total Fluoroscopy time (seconds): 13 Total sedation minutes: 11 Complications: none Procedure in detail & Post-procedure care: FINDINGS Foraminal Nerve Root Compression secondary to disc disease and facet hypertrophy DESCRIPTION OF PROCEDURE Following review of allergy and review of potential side effects and complications, including, but not necessarily limited to, infection, allergic reaction, local tissue breakdown, stroke, temporary or permanent nerve injury, paralysis, and possible , the patient indicated that the patient understood and agreed to proceed. An informed consent document was signed by the patient, witnessed by a nurse, and placed in the patient's chart. Additionally, other treatment options including medications, modalities, and physical therapy were reviewed with the patient. After review of previous anaesthesic history and IV conscious sedation the patient was deemed safe to proceed with today?s procedure with IV conscious sedation as ASA class II designation. Safety time-out was performed to confirm patient ID, procedure to be performed and site of procedure. IV sedation was accomplished with a combination of 2mg of Versed administered by the RN after DO order, titrated to patient comfort during the course of the procedure while the patient remained responsive to all verbal commands In the prone position following sterile prep and drape of the lumbar region, the left L4/5 posterior neuroforamen was identified fluoroscopically. The skin was anesthetized via a 25-gauge 1.5-inch needle with 1% lidocaine solution. At this point, a 25-gauge 3.5-inch spinal needle was atraumatically introduced and advanced under fluoroscopic guidance through the posterior left L4/5 neuroforamen to approximately the anterior aspect of the canal. Depth was confirmed on lateral view. Following negative aspiration, injection of approximately 1.5 cc of Isovue 200 under live fluoroscopy in the AP view confirmed excellent flow along the nerve root, into the epidural space without vascular or intrathecal uptake observed Radiological data, including multiple fluoroscopic views of the lumbosacral spine, reveal a spinal needle at the left L4/5 posterior neuroforamen. Subsequent views show flow of contrast material flowing superiorly and inferiorly along the nerve root confirming epidural flow. Subsequently, a test dose of 1.5 cc of 1% lidocaine solution was administered and patient was observed for two minutes for signs or symptoms of complications, including abdominal pain, shortness of breath, bilateral upper or lower extremity weakness, nausea and vomiting, prior to steroid injection. At this point, a total of 2cc or 10mg of dexamethasone and 6mg of betamethasone was injected without incident. The procedure tolerated the procedure well without signs or symptoms of complications prior to transfer to the recovery area continued monitoring without incident. The patient was then transferred to the recovery area where they were observed for an appropriate time after the injection. The patient reported a VAS score of 7 prior to the procedure and a post- procedure VAS of 0. POST OP INSTRUCTIONS The patient was provided a Pain Log to continue to record their response to the target-specific procedure prior to follow-up visit with their referring physician. Additionally, specific post-injection care instructions and a contact number to our office were provided if concerns arise regarding possible complications associated with the procedure are suspected.
== END 2023-06-10 14:46 | disposition home or self-care (01) ==
LOC: RAD 13:32
PROVIDERS: Family Provider Pediatrics; PCP Pediatrics; Referring Provider Physical Medicine & Rehabilitation; Visit Provider Physical Medicine & Rehabilitation
DX: M51.26 Other intervertebral disc displacement, lumbar region (principal); M51.16 Intervertebral disc disorders with radiculopathy, lumbar region
CPT/HCPCS: 64483; 99152; J0702; J1100; J2250; J3490

== ENCOUNTER → 2023-06-27 11:56 | Outpatient (CLI) | payer OTHER, SELFPAY ==
[2023-06-27 13:31] LABS: Alanine Aminotransferase 25 IU/L (<35); Albumin 4.6 g/dL (3.5-5.0); Albumin Globulin Ratio 1.7 (1.0-2.8); Alkaline Phosphatase 59 U/L (38-126); Aspartate Aminotransferase 25 IU/L (14-36); Bilirubin Total 0.3 mg/dL (0.2-1.3); Blood Urea Nitrogen 18 mg/dL (7-17); Calcium 10.1 mg/dL (8.4-10.2); Carbon Dioxide 27 mmol/L (22-32); Chloride 102 mmol/L (98-107); Cholesterol 255 mg/dL (140-199); Estimated Glomerular Filt Rate > 60 mL/min (>60); Globulin 2.7 g/dL (1.7-4.1); Glucose 88 mg/dL (70-100); HDL Cholesterol 90 mg/dL (40-60); HEMOLYSIS < 15 (0-50); LDL Cholesterol Calculated 142 mg/dL (<100); Potassium 4.6 mmol/L (3.4-5.1); Sodium 138 mmol/L (137-145); Total Protein 7.3 g/dL (6.3-8.2); Triglycerides 115 mg/dL (35-150)
[2023-06-27 13:32] LABS: Add Manual Diff / Slide Review NO; Basophils Absolute Auto 0 /uL (0-100); Basophils Percent Auto 0.3 % (0-2); Eosinophils Absolute Auto 100 /uL (0-450); Eosinophils Percent Auto 2.3 % (2-4); Hematocrit 40.1 % (36-46); Hemoglobin 13.5 g/dL (12.0-16.0); Lymphocytes Absolute Auto 1500 /uL (1100-4500); Lymphocytes Percent Auto 32.3 % (25-40); Mean Corpuscular HGB Conc 33.7 % (30-36); Mean Corpuscular Hemoglobin 29.9 PG (26-34); Mean Corpuscular Volume 88.6 fL (80-100); Monocytes Absolute Auto 400 /uL (0-900); Monocytes Percent Auto 8.5 % (3-14); Neutrophils Absolute Auto 2600 /uL (1500-7000); Neutrophils Percent Auto 56.6 % (50-75); Platelet Count 207 X10^3/uL (150-400); Red Blood Cell Count 4.52 X10^6/uL (4.0-5.2); Red Cell Distribution Width 14.4 % (11.6-14.8); White Blood Cell Count 4.6 X10^3/uL (4.5-11.0)
[2023-06-27 13:56] LABS: TSH w/ Reflex to FT4 2.63 uIU/mL (0.47-4.68)
== END ==
PROVIDERS: Family Provider Pediatrics; PCP Family Medicine; Referring Provider Family Medicine; Visit Provider Family Medicine
DX: E78.5 Hyperlipidemia, unspecified (principal); E55.9 Vitamin D deficiency, unspecified; F41.1 Generalized anxiety disorder; F41.0 Panic disorder [episodic paroxysmal anxiety]
CPT/HCPCS: 36415; 80053; 80061; 84443; 85025

== ENCOUNTER → 2023-07-22 08:27 | Outpatient (CLI) | payer OTHER, SELFPAY ==
--- NOTE | 2023-07-22 08:28 | DI.US.S_ITS ---
LIMITED ULTRASOUND OF LEFT BREAST: 07/22/2023 CLINICAL: 6 month follow-up of cysts. Comparison is made to exams dated: 07/22/2023 mammogram, 06/25/2022 ultrasound, 06/25/2022 mammogram, 10/26/2021 ultrasound, 05/03/2021 ultrasound, and 05/03/2021 mammogram - [facility]. Color flow ultrasound of the left breast 1 o'clock and 11 o'clock regions was performed. Rowe scale images of the real-time examination were reviewed. There is a stable benign 0.4 cm x 0.5 cm x 0.5 cm oval complicated cyst in the left breast at 11 o'clock middle depth 2 cm from the nipple. This was not seen on the prior mammogram. There also is a stable benign 0.7 cm x 0.3 cm x 0.5 cm oval complicated cyst in the left breast at 1 o'clock posterior depth 5 cm from the nipple. This oval complicated cyst is hypoechoic with internal echoes. This was not seen on the prior mammogram. These findings have been stable on multiple exams dating back to at least 05/03/2021, and are therefore considered benign. IMPRESSION: BENIGN There is no sonographic evidence of malignancy. The stable 0.4 cm x 0.5 cm x 0.5 cm oval complicated cyst in the left breast at 11 o'clock middle depth is consistent with a complicated cyst and is benign. The stable 0.7 cm x 0.3 cm x 0.5 cm oval complicated cyst in the left breast at 1 o'clock posterior depth is consistent with a complicated cyst and is benign. Return to annual mammogram screening schedule is recommended. This exam was interpreted at Station ID: [id number]. Electronically Signed By: Nicko Galvin M.D. ar/:07/22/2023 09:50:44 letter sent: Normal Exam Ultrasound BI-RADS: 2 Benign
--- NOTE | 2023-07-22 08:28 | DI.MG.S_ITS ---
BILATERAL DIGITAL DIAGNOSTIC MAMMOGRAM 3D/2D: 07/22/2023 CLINICAL: 1 year follow up per prior exam. Family history breast cancer. Comparison is made to exams dated: 06/25/2022 mammogram, 10/26/2021 mammogram, 05/03/2021 mammogram, 04/22/2020 mammogram, 06/25/2022 ultrasound, and 10/26/2021 ultrasound - [facility]. Both breasts are heterogeneously dense, which may obscure small masses (category c / 51-75% glandular tissue). No significant masses, calcifications, or other findings are seen in either breast. IMPRESSION: INCOMPLETE: NEEDS ADDITIONAL IMAGING EVALUATION There is no abnormality seen in the left breast to correspond with the ultrasound finding. A targeted ultrasound of the left breast is recommended and will be performed immediately following this exam. Based on Tyrer-Cuzick model (a risk assessment model), the patient's lifetime risk is 20.1% and her 10 year risk is 8.1%. If a patient has an elevated risk, a more comprehensive evaluation should be considered and/or a referral to a genetic counselor. The [place] [employer], [employer], and NCCN Guidelines advise the consideration of Breast MRI as an adjunct to screening mammography in patients whose Lifetime risk to develop breast cancer is 20% or higher. This exam was interpreted at Station ID: [id number]. NOTE: For mammograms, a report in lay terms will be sent to the patient. Approximately 15% of breast malignancies will not be visualized mammographically. In the management of a palpable breast mass, a negative mammogram must not discourage biopsy of a clinically suspicious lesion. Electronically Signed By: Nicko Galvin M.D. ar/:07/22/2023 09:48:22 ACR BI-RADS Category 0: Incomplete [id number]
== END ==
PROVIDERS: Family Provider Pediatrics; PCP Family Medicine; Referring Provider Family Medicine; Visit Provider Family Medicine
DX: R92.8 Other abnormal and inconclusive findings on diagnostic imaging of breast (principal); N60.02 Solitary cyst of left breast
CPT/HCPCS: 76642; 77066; G0279

== ENCOUNTER 2023-09-25 12:16 | Day surgery (SDC) | payer OTHER, SELFPAY ==
[2023-09-25 14:01] VITALS: BP 141/87; PULSE 61; RESP 16; TEMP 36.2; O2SAT 99
[2023-09-25] MEDS: LACTATED RINGERS 1,000 ML 42 ML IV (14:10)
--- NOTE | 2023-09-25 14:12 | P.HP_ITS ---
History of Present Illness History of Present Illness Date Patient Seen: 09/25/23 Time Patient Seen: 14:12 Chief complaint: Screening Colonoscopy Narrative: Dae is a 58-year-old woman who is here for colonoscopy. Her last 1 was about 11 years ago and she believes no polyps were found. No family history of colon cancer. She has had some constipation recently which she thinks may be due to new medications. [facility] Medical History Family history of breast cancer Hyperlipidemia Herniated nucleus pulposus, L4-5 Herpes simplex Mixed hyperlipidemia History of cervical cancer Seasonal allergies (~2001) Depression (~2007) Groin pain (~2009) Foot pain (~2018) Ankle pain (~2018) Chicken pox (~1975) Abnormal Pap smear of cervix (~1990) GERD (gastroesophageal reflux disease) (~2005) Cervical cancer (~1990) Surgical History Anesthesia History of Raul fundoplication (~12/2015) History of radical hysterectomy (~12/1990) Family History Mother Mental health problem Depression Sister Cancer Sister Thyroid disease Depression Fibromyalgia Sister Thyroid disease Syncope Sister Thyroid cancer Sarah's disease Grandmother History of heart disease Hyperlipidemia Hypertension Social History Smoking Status: Never smoker alcohol intake: current Meds Home Medications and Allergies Home Medications Medication Instructions Recorded Confirmed Type cetirizine 10 mg tablet (All Day 10 mg PO BEDTIME PRN congestion 03/25/22 09/25/23 Rx Allergy (cetirizine)) #20 tabs acyclovir 400 mg tablet 400 mg PO 5XD #50 tabs 02/04/23 09/25/23 Rx cholecalciferol (vitamin D3) 50 50 mcg PO .every other day 06/27/23 09/03/23 History mcg (2,000 unit) capsule duloxetine 60 mg capsule,delayed 60 mg PO DAILY #90 caps 06/27/23 09/25/23 Rx release propranolol 10 mg tablet 20 mg (2 x 10 mg) PO BID PRN 06/27/23 09/25/23 Rx Situational anxiety #30 tabs pravastatin 20 mg tablet 20 mg PO BEDTIME #90 tabs 07/16/23 09/25/23 Rx sodium,potassium,mag sulfates 17.5 See Rx Instructions PO .COMPLEX 07/31/23 09/03/23 Rx gram-3.13 gram-1.6 gram oral soln #354 mL (Suprep Bowel Prep Kit) gabapentin 100 mg capsule 200 mg (2 x 100 mg) PO BID PRN 09/03/23 09/25/23 Rx Neuropathy #180 caps meloxicam 15 mg tablet 15 mg PO DAILY #90 tabs 09/03/23 09/25/23 Rx Allergies Allergy/AdvReac Type Severity Reaction Status Date / Time No Known Drug Allergies Allergy Verified 09/25/23 13:53 Exam Vital Signs (past 8 hours): - 09/25/23 14:01 Temperature 97.2 F L Pulse Rate 61 Respiratory Rate 16 Blood Pressure 141/87 H Pulse Oximetry 99 Oxygen Delivery Method Room Air Oxygen Delivery Method Room Air Const General: healthy appearing Assessment & Plan Assessment and plan (1) Colon cancer screening: Status: Acute Plan Dae is a 58-year-old woman who is here for a colonoscopy for colon cancer screening. We reviewed the risks and benefits and she would like to proceed.
--- NOTE | 2023-09-25 14:44 | PM.OP.COLON ---
Operative Date/Time/Diagnoses Date of procedure: 09/25/23 Time of procedure: 14:44 Pre-op diagnosis: Colon cancer screening Post-op diagnosis: same Procedure & Clinicians Study performed: Colonoscopy Same procedure as scheduled: Yes Surgeon: José Manuel Trevino Procedure Notes Procedure in detail: Surgeon: José Manuel Trevino MD Anesthesia: John Watters MD Procedure: The patient was brought to the endoscopy suite, placed in left lateral decubitus position. The patient was connected to monitoring devices. A time-out was performed. Sedation was administered. Once the patient was adequately sedated, a digital rectal exam was performed and was normal. The scope was then inserted and advanced to the cecum where the appendiceal orifice was identified and photographed. The scope was then slowly withdrawn over greater than 6 minutes. The mucosa was thoroughly inspected. No abnormalities were found. The scope was retroflexed in the rectum. No abnormalities were seen. The scope was straightened and removed. The patient was awakened and brought to recovery. Scope withdrawal time: 8 minutes Sedation time: 14 minutes EBL: 0 Findings: Normal colon Post-procedure Recommendations: Colonoscopy in 10 years Disposition: PACU
[2023-09-25 14:47] VITALS: BP 86/57; PULSE 70; RESP 12; TEMP 36.6; O2SAT 94
[2023-09-25 14:52] VITALS: BP 86/58; PULSE 65; RESP 10; O2SAT 94
[2023-09-25 14:58] VITALS: BP 101/67; PULSE 65; RESP 17; O2SAT 92
[2023-09-25 15:02] VITALS: BP 116/87; PULSE 65; RESP 14; TEMP 36.6; O2SAT 97
[2023-09-25 15:07] VITALS: BP 118/88; PULSE 60; RESP 16; O2SAT 99
== END 2023-09-25 15:23 | disposition home or self-care (01) ==
PROVIDERS: Family Provider Pediatrics; PCP Family Medicine; Referring Provider Surgery; Visit Provider Surgery
PROC: 0DJD8ZZ Inspection of Lower Intestinal Tract, Via Natural or Artificial Opening Endoscopic (ICD-10-PCS; CPT 45378; principal; 2023-09-25 13:30)
DX: Z12.11 Encounter for screening for malignant neoplasm of colon (principal)
CPT/HCPCS: 45378; J2250; J2704

== ENCOUNTER 2024-02-26 15:12 | Outpatient (CLI) | payer OTHER, SELFPAY ==
[2024-02-26] VITALS (9 sets, daily range): BP systolic 110–150; BP diastolic 65–88; PULSE 44–57; RESP 11–23; TEMP 36.7; O2SAT 97–100
--- NOTE | 2024-02-26 16:00 | DI.RAD.S_ITS ---
PROCEDURE: PAIN L/S TRANSFORAMINAL INJECT INDICATIONS: Left L4/5 TFESI COMPARISON: [facility], , PAIN L/S TRANSFORAMINAL INJECT, 06/10/2023, 14:20. FINDINGS: Fluoroscopic spot filming was performed to verify placement of spinal needles at the L4-5 level(s), as labeled on the films. Appropriate location(s) of the needle tip(s) was confirmed by injection of iodinated contrast. IMPRESSION: Contrast and needle localization overlies L4-5. Dictated by: Cynthia Carmona M.D. on 02/27/2024 at 14:11 Approved by: Cynthia Carmona M.D. on 02/27/2024 at 14:12
[2024-02-26] MEDS: MIDAZOLAM 2 MG/2 ML VIAL 0.5 MG IV (16:46)
[2024-02-26] MEDS: DEXAMETHASONE 10 MG/ML VIAL INJ (16:48)
[2024-02-26] MEDS: BUPIVACAINE 0.25% (PF) VIAL 2 ML INJ (16:48)
[2024-02-26] MEDS: iopamidoL 15 ML VIAL 3 ML INJ (16:49)
[2024-02-26] MEDS: BETAMETHASONE 30 MG/5 ML MDV 6 MG INJ (16:49)
--- NOTE | 2024-02-26 17:04 | P.PCN_ITS ---
Date/Time/Diagnoses Date of procedure: 02/26/24 Time of procedure: 17:04 Pre-procedure diagnosis: 1. FORAMINAL STENOSIS WITH LE SYMPTOMS Post-procedure diagnosis: same Procedure Notes Procedure: 1. FLUOROSCOPICALLY GUIDED CONTRAST CONTROLLED TRANSFORAMINAL EPIDURAL STEROID INJECTION - LEFT L4/5 Indications: Dae is referred by Dr. Calvert for treatment of Foraminal Stenosis with Left LE Symptoms Physician: Royce Wilkins Total Fluoroscopy time (seconds): 8 Total sedation minutes: 12 Complications: none Procedure in detail & Post-procedure care: FINDINGS Foraminal Nerve Root Compression secondary to disc disease and facet hypertrophy DESCRIPTION OF PROCEDURE Following review of allergy and review of potential side effects and complications, including, but not necessarily limited to, infection, allergic reaction, local tissue breakdown, stroke, temporary or permanent nerve injury, paralysis, and possible , the patient indicated that the patient understood and agreed to proceed. An informed consent document was signed by the patient, witnessed by a nurse, and placed in the patient's chart. Additionally, other treatment options including medications, modalities, and physical therapy were reviewed with the patient. After review of previous anaesthesic history and IV conscious sedation the patient was deemed safe to proceed with today?s procedure with IV conscious sedation as ASA class II designation. Safety time-out was performed to confirm patient ID, procedure to be performed and site of procedure. IV sedation was accomplished with a combination of 0.5mg of Versed administered by the RN after DO order, titrated to patient comfort during the course of the procedure while the patient remained responsive to all verbal commands In the prone position following sterile prep and drape of the lumbar region, the left L4/5 posterior neuroforamen was identified fluoroscopically. The skin was anesthetized via a 25-gauge 1.5-inch needle with 1% lidocaine solution. At this point, a 25-gauge 3.5-inch spinal needle was atraumatically introduced and advanced under fluoroscopic guidance through the posterior left L4/5 neuroforamen to approximately the anterior aspect of the canal. Depth was confirmed on lateral view. Following negative aspiration, injection of approximately 1.5 cc of Isovue 200 under live fluoroscopy in the AP view confirmed excellent flow along the nerve root, into the epidural space without vascular or intrathecal uptake observed Radiological data, including multiple fluoroscopic views of the lumbosacral spine, reveal a spinal needle at the left L4/5 posterior neuroforamen. Subsequent views show flow of contrast material flowing superiorly and inferiorly along the nerve root confirming epidural flow. Subsequently, a test dose of 1.5 cc of 1% lidocaine solution was administered and patient was observed for two minutes for signs or symptoms of complications, including abdominal pain, shortness of breath, bilateral upper or lower extremity weakness, nausea and vomiting, prior to steroid injection. At this point, a total of 2cc or 10mg of dexamethasone and 6mg of betamethasone was injected without incident. The procedure tolerated the procedure well without signs or symptoms of complications prior to transfer to the recovery area continued monitoring without incident. The patient was then transferred to the recovery area where they were observed for an appropriate time after the injection. The patient reported a VAS score of 7 prior to the procedure and a post- procedure VAS of 0. POST OP INSTRUCTIONS The patient was provided a Pain Log to continue to record their response to the target-specific procedure prior to follow-up visit with their referring physician. Additionally, specific post-injection care instructions and a contact number to our office were provided if concerns arise regarding possible complications associated with the procedure are suspected.
--- NOTE | 2024-02-26 17:16 | PC.NURSE ---
Procedure Note: Low HR and sedation Patient heart rhythm SB the procedure room today upon placement on the color television console monitor. Patient HR noted at 44. Patient reports that she took her metoprolol today. Dr. Wilkins in the room and aware of patient HR. IV sedation discussed with Dr. Wilkins and the patient. Patient wanted to proceed with sedation. This RN gave 0.5mg Versed IV per verbal order of Dr. Wilkins to patient. Patient HR remained in 40s. Patient BP decreased. Patient awake and talking during procedure. Patient denied chest pain, shortness of breath. Patient did report some head wooziness after IV versed dose while lying prone on procedure table. Patient tolerated the procedure well. Patient transferred to post procedure recovery and report given to Phuong Quintanilla RN.
== END 2024-02-26 17:23 | disposition home or self-care (01) ==
LOC: RAD 15:13
PROVIDERS: Family Provider Pediatrics; PCP Family Medicine; Referring Provider Physical Medicine & Rehabilitation; Visit Provider Physical Medicine & Rehabilitation
DX: M48.061 Spinal stenosis, lumbar region without neurogenic claudication (principal); M51.16 Intervertebral disc disorders with radiculopathy, lumbar region; M47.26 Other spondylosis with radiculopathy, lumbar region
CPT/HCPCS: 64483; 99152; J0702; J1100; J2250; J3490

== ENCOUNTER 2024-03-05 14:18 | Emergency (ER) | payer OTHER, SELFPAY ==
[2024-03-05] VITALS (8 sets, daily range): BP systolic 121–152; BP diastolic 71–83; PULSE 59–79; RESP 16; TEMP 36.9; O2SAT 94–99; BMI 30.4
--- NOTE | 2024-03-05 14:44 | EKG_ITS ---
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
[2024-03-05 15:10] LABS: Add Manual Diff / Slide Review NO; Basophils Absolute Auto 0 /uL (0-100); Basophils Percent Auto 0.3 % (0-2); Eosinophils Absolute Auto 200 /uL (0-450); Hematocrit 38.2 % (36-46); Hemoglobin 12.7 g/dL (12.0-16.0); Lymphocytes Absolute Auto 1900 /uL (1100-4500); Lymphocytes Percent Auto 20.5 % (25-40); Mean Corpuscular HGB Conc 33.3 % (30-36); Mean Corpuscular Hemoglobin 30.3 PG (26-34); Monocytes Absolute Auto 700 /uL (0-900); Monocytes Percent Auto 7.2 % (3-14); Neutrophils Absolute Auto 6600 /uL (1500-7000); Platelet Count 202 X10^3/uL (150-400); Red Blood Cell Count 4.19 X10^6/uL (4.0-5.2); Red Cell Distribution Width 14.5 % (11.6-14.8); White Blood Cell Count 9.4 X10^3/uL (4.5-11.0)
[2024-03-05 15:23] LABS: Alanine Aminotransferase 22 IU/L (<35); Albumin 4.3 g/dL (3.5-5.0); Albumin Globulin Ratio 1.4 (1.0-2.8); Alkaline Phosphatase 83 U/L (38-126); Aspartate Aminotransferase 23 IU/L (14-36); BUN Creatinine Ratio 22.9 (6-22); Bilirubin Total 0.5 mg/dL (0.2-1.3); Blood Urea Nitrogen 16 mg/dL (7-17); Calcium 8.9 mg/dL (8.4-10.2); Carbon Dioxide 29 mmol/L (22-32); Chloride 106 mmol/L (98-107); Estimated Glomerular Filt Rate > 60 mL/min (>60); Glucose 98 mg/dL (80-110); HEMOLYSIS < 15 (0-50); Lipase 43 U/L (23-300); Potassium 3.6 mmol/L (3.4-5.1); Sodium 139 mmol/L (137-145); Total Protein 7.3 g/dL (6.3-8.2)
[2024-03-05] MEDS: KETOROLAC 30 MG/ML VIAL 15 MG IV (17:00)
--- NOTE | 2024-03-05 18:02 | DI.CT.S_ITS ---
PROCEDURE: CT ABDOMEN PELVIS W CON INDICATIONS: abd pain TECHNIQUE: After the administration of intravenous contrast, axial sections acquired from the lung bases to the pubic symphysis. Coronal and sagittal reformats were performed. For radiation dose reduction, the following was used: automated exposure control, adjustment of mA and/or kV according to patient size. COMPARISON: None. FINDINGS: Image quality: Diagnostic. Lower Chest: No significant findings. ABDOMEN: Liver: No solid mass. Liver measures 17.5 cm with steatosis. Gallbladder: No radiopaque gallstones or wall thickening. Biliary ducts: No biliary dilation. Pancreas: No ductal dilation. Spleen: Size is within normal limits. Adrenal Glands: No adrenal nodules. Kidneys and Ureters: No hydronephrosis. No solid mass. No complex renal cystic lesion which requires follow up. Stomach and Bowel: Normal colonic caliber, without significant wall thickening. Peritoneum: No abnormal intraperitoneal fluid. No free air. Clip is present the right lower quadrant suspected to be related to appendectomy. Ventral Wall: Minimal fat containing ventral hernia. Abdominal Nodes: No retroperitoneal or mesenteric adenopathy by size criteria. Vessels: Aorta and inferior vena cava are normal in size. PELVIS: Pelvic Organs: Unremarkable. Bladder: No bladder wall thickening, accounting for underdistention. Pelvic Nodes: No enlarged lymph nodes. Miscellaneous: No inguinal hernias are seen. Bones: No aggressive osseous abnormality. IMPRESSION: No acute intra-abdominal or pelvic process. Dictated by: Cynthia Carmona M.D. on 03/05/2024 at 18:59 Approved by: Cynthia Carmona M.D. on 03/05/2024 at 19:02
--- NOTE | 2024-03-05 18:11 | ED.ABDPAIN ---
HPI - Abdominal Pain General Chief Complaint: Abdominal Pain Stated Complaint: abd pain t-3 Time Seen by Provider: 03/05/24 18:01 Source: patient and family Mode of arrival: Ambulatory History of Present Illness HPI narrative: 58-year-old female with history of remote hysterectomy, prior Raul fundoplication remote surgery, complains of 3 days duration right upper quadrant abdominal pain, radiating to the back. Some nausea and retching but no actual emesis. She has frequent loose stools, no diagnosis of IBS or inflammatory bowel disease, no recent exposure to antibiotics, had last bowel movement yesterday unremarkable. No black or red stools. No pain with urination, no frequency of urination. No fevers or chills. No cough shortness of breath. [id number] Tylenol not helping, she takes chronic meloxicam for low back pain which also is not helping. Related Data Home Medications Medication Instructions Recorded Confirmed cholecalciferol (vitamin D3) 50 50 mcg PO .every other day 06/27/23 02/09/24 mcg (2,000 unit) capsule pravastatin 20 mg tablet 20 mg PO DAILY 02/09/24 02/09/24 Previous Rx's Medication Instructions Recorded cetirizine 10 mg tablet (All Day 10 mg PO BEDTIME PRN congestion 03/25/22 Allergy (cetirizine)) #20 tabs acyclovir 400 mg tablet 400 mg PO 5XD #50 tabs 10/13/23 gabapentin 100 mg capsule 200 mg (2 x 100 mg) PO BID PRN 02/09/24 Neuropathy #180 caps meloxicam 15 mg tablet 15 mg PO DAILY #90 tabs 02/09/24 propranolol 10 mg tablet 20 mg (2 x 10 mg) PO BID PRN 02/12/24 Situational anxiety #30 tabs sertraline 100 mg tablet 100 mg PO DAILY #30 tabs 02/12/24 omeprazole 20 mg capsule,delayed 20 mg PO DAILY upper abdominal 03/05/24 release pain 30 days #30 caps Allergies Allergy/AdvReac Type Severity Reaction Status Date / Time bupropion AdvReac Severe Anger; Verified 03/05/24 14:44 crying uncontrably; irritable duloxetine AdvReac Intermediate Emotional Verified 03/05/24 14:44 lability hydromorphone AdvReac Intermediate Anxiety Verified 03/05/24 19:07 Review of Systems Review of Systems Narrative: Per HPI Patient History Medical History Family history of breast cancer Hyperlipidemia Herniated nucleus pulposus, L4-5 Herpes simplex Mixed hyperlipidemia History of cervical cancer Seasonal allergies (~2001) Depression (~2007) Groin pain (~2009) Foot pain (~2018) Ankle pain (~2018) Chicken pox (~1975) Abnormal Pap smear of cervix (~1990) GERD (gastroesophageal reflux disease) (~2005) Cervical cancer (~1990) Surgical History Anesthesia History of Raul fundoplication (~12/2015) History of radical hysterectomy (~12/1990) Family History Mother Mental health problem Depression Sister Cancer Sister Thyroid disease Depression Fibromyalgia Sister Thyroid disease Syncope Sister Thyroid cancer Sarah's disease Grandmother History of heart disease Hyperlipidemia Hypertension Social History Smoking Status: Never smoker alcohol intake: current Smoking Status: Never smoker alcohol intake frequency: 0-2 drinks per day Substance Use Type: does not use Exam Narrative Exam Narrative: GENERAL: Well-developed patient, in mild distress. HEAD: Atraumatic. Normocephalic. EYES: Pupils equal round and reactive. Extraocular motions intact. No scleral icterus. No injection or drainage. ENT: Nose without bleeding, purulent drainage. Throat without erythema, tonsillar hypertrophy or exudate. Airway patent. NECK: Trachea midline. Non tender CARDIOVASCULAR: Regular rate and rhythm without murmurs, gallops, or rubs. RESPIRATORY: Clear to auscultation. Breath sounds equal bilaterally. No wheezes, rales, or rhonchi. GASTROINTESTINAL: Some tenderness right upper quadrant and epigastrium and periumbilical region. No guarding or rebound, nondistended. No obvious fluid wave. Bowel tones without rushes or tinkles. EXTREMITIES: No edema or joint tenderness. BACK: Nontender without deformity or crepitance. No flank tenderness. NEURO: AOx3. SKIN: No rash or erythema of visible areas Initial Vital Signs Initial Vital Signs: Vital Signs Temperature 98.4 F 03/05/24 14:39 Pulse Rate 79 03/05/24 14:39 Respiratory Rate 16 03/05/24 14:39 Blood Pressure 152/80 H 03/05/24 14:39 Pulse Oximetry 99 03/05/24 14:39 Oxygen Delivery Method Room Air 03/05/24 14:39 Course Orders Ordered: Discontinued Medications Hydromorphone HCl (Hydromorphone 0.5 Mg Inj) 0.5 mg IV NOW ONE Stop: 03/05/24 18:16 Last Admin: 03/05/24 18:23 Dose: 0.5 mg Documented By: SINDI Sodium Chloride (Normal Saline 0.9%) 1,000 mls @ 1,000 mls/hr IV BOLUS ONE Stop: 03/05/24 19:14 Last Infusion: 03/05/24 19:49 Dose: Infused Documented By: Infusion: 03/05/24 19:10 Dose: 0 mls/hr Documented By: Admin: 03/05/24 18:24 Dose: 1,000 mls/hr Documented By: SINDI Ketorolac Tromethamine (Ketorolac 30 Mg/Ml Vial) 15 mg IV NOW ONE Stop: 03/05/24 16:55 Last Admin: 03/05/24 17:00 Dose: 15 mg Documented By: SINDI Ondansetron HCl (Ondansetron 4 Mg/2 Ml Inj) 4 mg IV NOW PRN PRN Reason: Nausea And Vomiting Ondansetron HCl (Ondansetron 4 Mg Odt) 4 mg PO NOW PRN PRN Reason: Nausea And Vomiting Pantoprazole Sodium (Pantoprazole 40 Mg Vial) 40 mg IV NOW ONE Stop: 03/05/24 20:56 Last Admin: 03/05/24 21:02 Dose: 40 mg Documented By: Vital Signs Vital signs: Vital Signs - 8 hr 03/05/24 14:39 03/05/24 18:39 03/05/24 19:00 Temperature 98.4 F Pulse Rate 79 59 L Respiratory Rate 16 Blood Pressure 152/80 H 129/76 Pulse Oximetry 99 97 Oxygen Delivery Method Room Air 03/05/24 19:00 03/05/24 19:30 03/05/24 19:30 Temperature Pulse Rate 59 L 64 Respiratory Rate Blood Pressure 127/74 Pulse Oximetry 94 96 Oxygen Delivery Method 03/05/24 19:45 03/05/24 19:45 03/05/24 20:21 Temperature Pulse Rate 63 Respiratory Rate Blood Pressure 136/78 124/83 Pulse Oximetry 97 Oxygen Delivery Method 03/05/24 20:21 03/05/24 20:30 03/05/24 20:30 Temperature Pulse Rate 68 64 Respiratory Rate Blood Pressure 121/79 Pulse Oximetry 96 96 Oxygen Delivery Method MDM - Abdominal Pain Lab Data Attestation: I reviewed the patient's lab results. 03/05/24 14:57 03/05/24 14:57 Labs: Lab Results 03/05/24 Range/Units 14:57 WBC 9.4 (4.5-11.0) X10^3/uL RBC 4.19 (4.0-5.2) X10^6/uL Hgb 12.7 (12.0-16.0) g/dL Hct 38.2 (36-46) % MCV 91.0 (80-100) fL MCH 30.3 (26-34) PG MCHC 33.3 (30-36) % RDW 14.5 (11.6-14.8) % Plt Count 202 (150-400) X10^3/uL Neut % (Auto) 70.0 (50-75) % Lymph % (Auto) 20.5 L (25-40) % Charlton % (Auto) 7.2 (3-14) % Eos % (Auto) 2.0 (2-4) % Baso % (Auto) 0.3 (0-2) % Neut # (Auto) 6600 (7012-4731) /uL Lymph # (Auto) 1900 (5881-9434) /uL Charlton # (Auto) 700 (0-900) /uL Eos # (Auto) 200 (0-450) /uL Baso # (Auto) 0 (0-100) /uL Sodium 139 (137-145) mmol/L Potassium 3.6 (3.4-5.1) mmol/L Chloride 106 (98-107) mmol/L Carbon Dioxide 29 (22-32) mmol/L BUN 16 (7-17) mg/dL Creatinine 0.70 (0.52-1.04) mg/dL Estimated GFR > 60 (>60) mL/min BUN/Creatinine Ratio 22.9 H (6-22) Glucose 98 (80-110) mg/dL Calcium 8.9 (8.4-10.2) mg/dL Total Bilirubin 0.5 (0.2-1.3) mg/dL AST 23 (14-36) IU/L ALT 22 (<35) IU/L Alkaline Phosphatase 83 (38-126) U/L Total Protein 7.3 (6.3-8.2) g/dL Albumin 4.3 (3.5-5.0) g/dL Globulin 3.0 (1.7-4.1) g/dL Albumin/Globulin Ratio 1.4 (1.0-2.8) Lipase 43 (23-300) U/L Point of care testing: Urine Dip Bedside Urine Glucose Negative Bedside Urine Bilirubin - Negative Bedside Urine Ketone - Negative Urine Specific Tanner 1.000 Bedside Urine Occult Blood - Negative Bedside Urine pH 6.0 Bedside Urine Protein - Negative Bedside Urine Urobilinogen - Negative Bedside Urine Nitrite - Negative Bedside Urine Leukocytes - Negative Esterase Imaging Data CT scan - abdomen/pelvis: Radiologist's Impression: [address] [address] [address] Scan Report Signed Patient: Dae Doyle MR#: [id number] : 1965 Acct:[id number] Age/Sex: 58 / F Date of Service: 03/05/24 Loc: ED Accession Number: [id number] Procedure: CT abdomen pelvis w con Ordering Provider: Matt Muller MD PROCEDURE: CT ABDOMEN PELVIS W CON INDICATIONS: abd pain TECHNIQUE: After the administration of intravenous contrast, axial sections acquired from the lung bases to the pubic symphysis. Coronal and sagittal reformats were performed. For radiation dose reduction, the following was used: automated exposure control, adjustment of mA and/or kV according to patient size. COMPARISON: None. FINDINGS: Image quality: Diagnostic. Lower Chest: No significant findings. ABDOMEN: Liver: No solid mass. Liver measures 17.5 cm with steatosis. Gallbladder: No radiopaque gallstones or wall thickening. Biliary ducts: No biliary dilation. Pancreas: No ductal dilation. Spleen: Size is within normal limits. Adrenal Glands: No adrenal nodules. Kidneys and Ureters: No hydronephrosis. No solid mass. No complex renal cystic lesion which requires follow up. Stomach and Bowel: Normal colonic caliber, without significant wall thickening. Peritoneum: No abnormal intraperitoneal fluid. No free air. Clip is present the right lower quadrant suspected to be related to appendectomy. Ventral Wall: Minimal fat containing ventral hernia. Abdominal Nodes: No retroperitoneal or mesenteric adenopathy by size criteria. Vessels: Aorta and inferior vena cava are normal in size. PELVIS: Pelvic Organs: Unremarkable. Bladder: No bladder wall thickening, accounting for underdistention. Pelvic Nodes: No enlarged lymph nodes. Miscellaneous: No inguinal hernias are seen. Bones: No aggressive osseous abnormality. IMPRESSION: No acute intra-abdominal or pelvic process. Dictated by: Cynthia Carmona M.D. on 03/05/2024 at 18:59 Approved by: Cynthia Carmona M.D. on 03/05/2024 at 19:02 US - abdomen: Radiologist's Impression: [address] [address] Ultrasound Report Signed Patient: Dae Doyle MR#: [id number] : 1965 Acct:[id number] Age/Sex: 58 / F Date of Service: 03/05/24 Loc: ED Accession Number: [id number] Procedure: US abdomen limited Ordering Provider: Matt Muller MD PROCEDURE: US ABDOMEN LIMITED INDICATIONS: RUQ pain, R flank pain, CT neg, RUQ abd US TECHNIQUE: Real-time focused scanning was performed of the abdomen, with image documentation. COMPARISON: None. FINDINGS: The gallbladder is normal without stones, sludge, wall thickening, or pericholecystic fluid. The visible portions of the pancreas, liver, and biliary tree are normal. The common duct measures up to 3 mm in diameter. There is no free fluid in the right upper quadrant. IMPRESSION: Normal gallbladder without evidence of cholelithiasis or cholecystitis. Dictated by: Lana Valle M.D. on 03/05/2024 at 20:21 Approved by: Lana Valle M.D. on 03/05/2024 at 20:22 ECG Data Attestation: I personally reviewed and interpreted this ECG as follows: Interpretation: Normal sinus rhythm with rate of 68, no obvious ST segment elevation or depression changes. T-wave inversions lead 3 noted, flat T-waves AVF, upright in lead 2. IA 168, QRS 96, QTC 414. MDM Narrative Medical decision making narrative: 58-year-old with right upper quadrant and right flank pain for 3 days, some retching without emesis, frequent loose stools, afebrile, sirs screen negative, some tenderness right upper quadrant and periumbilical on exam. Patient was given IV Toradol and Zofran, still in pain, nausea better. Lab results pending. White blood cell count unremarkable, CMP normal, hemoglobin normal, urinalysis dip negative blood and leukocyte esterase. Still having pain. IV Dilaudid. CT abdomen and pelvis requested CT abdomen and pelvis showed no acute changes, see radiologist's report. Right upper quadrant abdominal ultrasound ordered. Pain improved after IV Dilaudid dose. Patient declines any further pain medicines. Ultrasound pending. Ultrasound right upper quadrant abdomen negative, see radiologist's report. IV Protonix. Takes meloxicam for chronic back pain, hx Raul fundoplication, consider acid-related cause upper right abdominal pain. Trial of omeprazole advised. Follow up with PCP advised. Return precautions discussed, home with family Critical Care Time Critical Care Time Critical Care Time: Yes Total Critical Care Time: 31 Attestation: The high probability of a clinically significant, sudden or life threatening deterioration of the [abdominopelvic, genitourinary] system(s) required my full and direct attention, intervention and personal management. The aggregate critical care time was [31] minutes. This time is in addition to time spent performing reported procedures but includes the following: [x] Data Review and interpretation [x] Patient assessment and monitoring of vital signs [x] Documentation [x] Medication orders and management Discharge Plan Departure Patient Disposition: Home Clinical Impression: Abdominal pain, Flank pain Activity Restrictions/Additional Instructions: Right upper quadrant abdominal and right flank pain unclear cause. No fever, some mild tenderness right upper quadrant noted. CT abdomen and pelvis imaging showed no acute changes per radiologist's report. Ultrasound additionally done right upper quadrant area, also no acute changes noted, per radiologist's report. IV Protonix antacid given. You do take meloxicam, which can be a risk factor for gastritis or peptic ulcer. It is possible to have duodenal irritation in the area of your symptoms, and this is not necessarily seen on imaging unless it is quite severe or complicated. Trial of antacid for now, consider omeprazole proton pump inhibitor course, prescription sent to your pharmacy although this is available [id number]. Could consider upper endoscopy evaluation as an outpatient if symptoms persist. Recheck symptoms with your regular provider on Friday. Return earlier to this/nearest emergency department for any change worsening symptoms or any concerns prior Prescriptions: New omeprazole 20 mg capsule,delayed release(DR/EC) 20 mg PO DAILY 30 Days Qty: 30 0RF No Action cetirizine [All Day Allergy (cetirizine)] 10 mg tablet 10 mg PO BEDTIME PRN (Reason: congestion) Qty: 20 0RF acyclovir 400 mg tablet 400 mg PO 5XD Qty: 50 1RF sertraline 100 mg tablet 100 mg PO DAILY Qty: 30 2RF propranolol 10 mg tablet 20 mg PO BID PRN (Reason: Situational anxiety) Qty: 30 1RF cholecalciferol (vitamin D3) 50 mcg (2,000 unit) capsule 50 mcg PO .every other day pravastatin 20 mg tablet 20 mg PO DAILY meloxicam 15 mg tablet 15 mg PO DAILY Qty: 90 2RF gabapentin 100 mg capsule 200 mg PO BID PRN (Reason: Neuropathy) Qty: 180 3RF Referrals: Sonny Calvert DO [Primary Care Provider] - Stand Alone Forms: Patient Portal/API
[2024-03-05] MEDS: HYDROMORPHONE 0.5 MG INJ IV (18:23)
[2024-03-05] MEDS: SODIUM CHLORIDE 0.9% 1,000 ML 1000 ML IV (18:24)
--- NOTE | 2024-03-05 19:15 | DI.US.S_ITS ---
PROCEDURE: US ABDOMEN LIMITED INDICATIONS: RUQ pain, R flank pain, CT neg, RUQ abd US TECHNIQUE: Real-time focused scanning was performed of the abdomen, with image documentation. COMPARISON: None. FINDINGS: The gallbladder is normal without stones, sludge, wall thickening, or pericholecystic fluid. The visible portions of the pancreas, liver, and biliary tree are normal. The common duct measures up to 3 mm in diameter. There is no free fluid in the right upper quadrant. IMPRESSION: Normal gallbladder without evidence of cholelithiasis or cholecystitis. Dictated by: Lana Valle M.D. on 03/05/2024 at 20:21 Approved by: Lana Valle M.D. on 03/05/2024 at 20:22
[2024-03-05] MEDS: PANTOPRAZOLE 40 MG VIAL IV (21:02)
== END 2024-03-05 21:23 | disposition home or self-care (01) ==
PROVIDERS: Emergency Medicine; Emergency Provider Emergency Medicine; Family Provider Pediatrics; PCP Family Medicine
DX: R10.11 Right upper quadrant pain (principal)
CPT/HCPCS: 36415; 74177; 76705; 80053; 81003; 83690; 85025; 93005; 96361; 96374; 96375; 99284; J1170; J1885; J2470; Q9967

== ENCOUNTER 2024-05-26 10:32 | Emergency (ER) | payer OTHER, SELFPAY ==
[2024-05-26] VITALS (7 sets, daily range): BP systolic 130–142; BP diastolic 78–85; PULSE 48–55; RESP 14–21; TEMP 36.5–36.6; O2SAT 93–99; BMI 30.4
--- NOTE | 2024-05-26 10:35 | DI.RAD.S_ITS ---
PROCEDURE: XR CHEST 1V INDICATIONS: chest pain TECHNIQUE: One view of the chest was acquired. COMPARISON: None. FINDINGS: Surgical changes and devices: None. Lungs and pleura: Lungs are clear. No pleural effusions or pneumothorax. Mediastinum: Mediastinal contours appear normal. Heart size is normal. Bones and chest wall: No suspicious bony lesions. Overlying soft tissues appear unremarkable. IMPRESSION: No acute cardiopulmonary abnormality is seen. Dictated by: Fam Quinn M.D. on 05/26/2024 at 11:40 Approved by: Fam Quinn M.D. on 05/26/2024 at 11:43
--- NOTE | 2024-05-26 10:43 | PC.NURSE ---
Back pain to the left of the right shoulder radiating in a straight line to center of back. Pt denies taking regular BP meds. Pt states she noticed the pain when she was combing her hair. Pt noticed to be sweaty. Pt denies any cardiac history.
--- NOTE | 2024-05-26 10:46 | EKG_ITS ---
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
[2024-05-26 10:54] LABS: Add Manual Diff / Slide Review NO; Basophils Absolute Auto 0 /uL (0-100); Basophils Percent Auto 0.4 % (0-2); Eosinophils Absolute Auto 100 /uL (0-450); Eosinophils Percent Auto 2.9 % (2-4); Hematocrit 39.2 % (36-46); Hemoglobin 13.3 g/dL (12.0-16.0); Lymphocytes Absolute Auto 1900 /uL (1100-4500); Lymphocytes Percent Auto 38.9 % (25-40); Mean Corpuscular HGB Conc 33.9 % (30-36); Mean Corpuscular Volume 88.4 fL (80-100); Monocytes Absolute Auto 400 /uL (0-900); Monocytes Percent Auto 7.9 % (3-14); Neutrophils Absolute Auto 2400 /uL (1500-7000); Neutrophils Percent Auto 49.9 % (50-75); Platelet Count 237 X10^3/uL (150-400); Red Blood Cell Count 4.43 X10^6/uL (4.0-5.2); Red Cell Distribution Width 14.6 % (11.6-14.8); White Blood Cell Count 4.9 X10^3/uL (4.5-11.0)
--- NOTE | 2024-05-26 10:57 | PC.NURSE ---
Discussed pt's presentation w/ MD Muñoz.
[2024-05-26 11:04] LABS: Alanine Aminotransferase 18 IU/L (<35); Albumin 4.4 g/dL (3.5-5.0); Albumin Globulin Ratio 1.5 (1.0-2.8); Alkaline Phosphatase 69 U/L (38-126); Aspartate Aminotransferase 27 IU/L (14-36); BUN Creatinine Ratio 30.3 (6-22); Bilirubin Total 0.5 mg/dL (0.2-1.3); Blood Urea Nitrogen 20 mg/dL (7-17); Calcium 9.7 mg/dL (8.4-10.2); Carbon Dioxide 23 mmol/L (22-32); Chloride 105 mmol/L (98-107); Creatine Kinase 39 U/L (30-135); Estimated Glomerular Filt Rate > 60 mL/min (>60); Glucose 103 mg/dL (80-110); HEMOLYSIS 17 (0-50); Lipase 42 U/L (23-300); Sodium 134 mmol/L (137-145); Total Protein 7.4 g/dL (6.3-8.2)
--- NOTE | 2024-05-26 11:06 | ED.BACK ---
HPI - Back Pain/Injury General Chief Complaint: Back Pain/Injury Stated Complaint: Back Pain Time Seen by Provider: 05/26/24 10:52 Source: patient History of Present Illness HPI Narrative: 58-year-old woman with a history of depression, hyperlipidemia, anxiety, mild arthritis was fixing her hair this morning with her right arm raised above her head she had a sharp stabbing pains through the right side of her chest ending up at the tip of her scapula that was described as 10/10, quite severe associated with diaphoresis near vomiting and prompted her ER visit. She had been fine until that moment. She complains of still feeling short of breath, significant pain with deep breathing or movement. She has never had similar complaints Related Data Home Medications Medication Instructions Recorded Confirmed cholecalciferol (vitamin D3) 50 50 mcg PO .every other day 06/27/23 05/19/24 mcg (2,000 unit) capsule pravastatin 20 mg tablet 20 mg PO DAILY 02/09/24 05/19/24 Previous Rx's Medication Instructions Recorded cetirizine 10 mg tablet (All Day 10 mg PO BEDTIME PRN congestion 03/25/22 Allergy (cetirizine)) #20 tabs acyclovir 400 mg tablet 400 mg PO 5XD #50 tabs 10/13/23 gabapentin 100 mg capsule 200 mg (2 x 100 mg) PO BID PRN 02/09/24 Neuropathy #180 caps meloxicam 15 mg tablet 15 mg PO DAILY #90 tabs 02/09/24 propranolol 10 mg tablet 20 mg (2 x 10 mg) PO BID PRN 02/12/24 Situational anxiety #30 tabs sertraline 100 mg tablet 100 mg PO DAILY #30 tabs 05/11/24 oxycodone-acetaminophen 5 mg-325 1 tab PO Q6H PRN pain #14 tabs 05/26/24 mg tablet Allergies Allergy/AdvReac Type Severity Reaction Status Date / Time bupropion AdvReac Severe Anger; Verified 05/26/24 10:43 crying uncontrably; irritable duloxetine AdvReac Intermediate Emotional Verified 05/26/24 10:43 lability hydromorphone AdvReac Intermediate Anxiety Verified 05/26/24 10:43 Review of Systems Review of Systems Narrative: Pertinent positive and negative findings as per HPI Patient History Medical History Family history of breast cancer Hyperlipidemia Herniated nucleus pulposus, L4-5 Herpes simplex Mixed hyperlipidemia History of cervical cancer Seasonal allergies (~2001) Depression (~2007) Groin pain (~2009) Foot pain (~2018) Ankle pain (~2018) Chicken pox (~1975) Abnormal Pap smear of cervix (~1990) GERD (gastroesophageal reflux disease) (~2005) Cervical cancer (~1990) Surgical History Anesthesia History of Raul fundoplication (~12/2015) History of radical hysterectomy (~12/1990) Family History Mother Mental health problem Depression Sister Cancer Sister Thyroid disease Depression Fibromyalgia Sister Thyroid disease Syncope Sister Thyroid cancer Sarah's disease Grandmother History of heart disease Hyperlipidemia Hypertension Social History Smoking Status: Never smoker alcohol intake: current Smoking Status: Never smoker alcohol intake frequency: 0-2 drinks per day Substance Use Type: does not use Exam Initial Vital Signs Initial Vital Signs: Vital Signs Temperature 98 F 05/26/24 10:39 Pulse Rate 55 L 05/26/24 10:39 Respiratory Rate 18 05/26/24 10:39 Blood Pressure 130/85 05/26/24 10:39 Pulse Oximetry 99 05/26/24 10:39 Oxygen Delivery Method Room Air 05/26/24 10:39 General: Healthy appearing, appears to be uncomfortable, pale, lips with poor color, she is diaphoretic she is alert and able to speak in full sentences and give a complete and coherent history HEENT: Moist mucous membranes, normal sclera with reactive pupils, Neck: No JVD, supple, no carotid bruits Respiratory: Lungs are clear to auscultation, no wheezing no rales no rhonchi. Full and symmetrical air movement. No reproduction of pain with palpation or compression of the chest wall Cardiac: Bradycardic with no murmurs Abdomen: Soft, nontender, no pulsatile abdominal masses, no flank pain, Skin: Warm and dry, no rashes Neurologic: Grossly neurologically intact with no obvious asymmetries or abnormalities Extremities: No trauma, well perfused, mildly diaphoretic, dorsalis pedis and posterior tibialis pulses are appreciated Psych: Cooperative, appropriate insight and affect Course Orders Ordered: ED Orders 05/26/24 10:35 XR chest 1V Stat EKG-12 Lead Stat 05/26/24 10:39 Complete Blood Count AUTO DIFF Stat Comprehensive Metabolic Panel Stat Lipase Stat Magnesium Stat NT-proBNP (BNP-Adult 18+) Stat PTT Partial Thromboplastin Joe Stat Prothrombin Time INR Stat Troponin & CK Cardiac Panel Stat 05/26/24 11:11 CT angio chest abdomen pelvis Stat Discontinued Medications Hydromorphone HCl (Hydromorphone 0.5 Mg Inj) 0.5 mg IV NOW ONE Stop: 05/26/24 12:20 Ketorolac Tromethamine (Ketorolac 30 Mg/Ml Vial) 15 mg IV NOW ONE Stop: 05/26/24 12:20 Last Admin: 05/26/24 12:21 Dose: 15 mg Documented By: SINDI Vital Signs Vital signs: Vital Signs - 8 hr 05/26/24 10:39 Temperature 98 F Pulse Rate 55 L Respiratory Rate 18 Blood Pressure 130/85 Pulse Oximetry 99 Oxygen Delivery Method Room Air MDM - Back Pain/Injury Lab Data 05/26/24 10:39 05/26/24 10:39 Labs: Lab Results 05/26/24 Range/Units 10:39 WBC 4.9 (4.5-11.0) X10^3/uL RBC 4.43 (4.0-5.2) X10^6/uL Hgb 13.3 (12.0-16.0) g/dL Hct 39.2 (36-46) % MCV 88.4 (80-100) fL MCH 30.0 (26-34) PG MCHC 33.9 (30-36) % RDW 14.6 (11.6-14.8) % Plt Count 237 (150-400) X10^3/uL Neut % (Auto) 49.9 L (50-75) % Lymph % (Auto) 38.9 (25-40) % [place] % (Auto) 7.9 (3-14) % Eos % (Auto) 2.9 (2-4) % Baso % (Auto) 0.4 (0-2) % Neut # (Auto) 2400 (2081-9542) /uL Lymph # (Auto) 1900 (0234-8106) /uL [place] # (Auto) 400 (0-900) /uL Eos # (Auto) 100 (0-450) /uL Baso # (Auto) 0 (0-100) /uL PT 11.5 (9.4-12.5) SECONDS INR 1.0 (0.9-1.3) APTT 33 (25.1-36.5) SECONDS Sodium 134 L (137-145) mmol/L Potassium 4.0 (3.4-5.1) mmol/L Chloride 105 (98-107) mmol/L Carbon Dioxide 23 (22-32) mmol/L BUN 20 H (7-17) mg/dL Creatinine 0.66 (0.52-1.04) mg/dL Estimated GFR > 60 (>60) mL/min BUN/Creatinine Ratio 30.3 H (6-22) Glucose 103 (80-110) mg/dL Calcium 9.7 (8.4-10.2) mg/dL Magnesium 2.0 (1.6-2.3) mg/dL Total Bilirubin 0.5 (0.2-1.3) mg/dL AST 27 (14-36) IU/L ALT 18 (<35) IU/L Alkaline Phosphatase 69 (38-126) U/L Total Creatine Kinase 39 (30-135) U/L Troponin I < 0.012 (0.01-0.034) ng/mL NT-Pro-B Natriuret Pep 60 (<125) pg/mL Total Protein 7.4 (6.3-8.2) g/dL Albumin 4.4 (3.5-5.0) g/dL Globulin 3.0 (1.7-4.1) g/dL Albumin/Globulin Ratio 1.5 (1.0-2.8) Lipase 42 (23-300) U/L Imaging Data CT angiogram chest/abd/pelvis: Radiologist's Impression: PROCEDURE: CT ANGIO CHEST ABDOMEN PELVIS INDICATIONS: Concern for acute dissection TECHNIQUE: Precontrast 5 mm thick sections acquired from the lung apices to the iliac crests. After the administration of intravenous contrast, 2.5 mm thick sections again acquired from the lung apices to the iliac crests. Maximum intensity projection (MIP) oblique sagittal and coronal reformats were then acquired. For radiation dose reduction, the following was used: automated exposure control. COMPARISON: [facility], CT, CT ABDOMEN PELVIS W CON, 03/05/2024, 18:10. FINDINGS: Image quality: Diagnostic. AORTA: No aortic aneurysm. No acute aortic syndrome. CHEST: Lower Neck: No enlarged lymph nodes. Thyroid: No thyroid nodules which require sonographic evaluation. Axillae: No enlarged lymph nodes. Chest Wall: Unremarkable. Lungs and Pleura: No pneumothorax or pleural effusions. No consolidation or suspicious nodules. Heart: Heart size is normal. No pericardial effusion. Thoracic Vessels: Pulmonary arteries demonstrate normal size. Mediastinum and Gaby: No enlarged lymph nodes. Esophagus: No wall thickening. No hiatal hernia. ABDOMEN: Liver: No solid mass. Gallbladder: No radiopaque gallstones or wall thickening. Biliary ducts: No biliary dilation. Pancreas: No ductal dilation. Spleen: Size is within normal limits. Adrenal Glands: No adrenal nodules. Kidneys and Ureters: No hydronephrosis. No solid mass. No complex renal cystic lesion which requires follow up. Stomach and Bowel: Wall thickening of the ascending colon. Remainder of the colon and small bowel appears within normal limits. Peritoneum: No abnormal intraperitoneal fluid. No free air. Ventral Wall: No hernia. Abdominal Nodes: No retroperitoneal or mesenteric adenopathy by size criteria. Vessels: Inferior vena cava is normal in size. PELVIS: Pelvic Organs: Unremarkable. Bladder: Unremarkable. Pelvic Nodes: No enlarged lymph nodes. Miscellaneous: No inguinal hernias are seen. Surgical clips within the pelvis. Bones: Mild degenerative changes of the spine. IMPRESSION: 1. No acute aortic syndrome. 2. Wall thickening of the ascending colon. May be secondary to colitis versus decompression. Recommend correlation with age-appropriate colonoscopy screening. 3. Otherwise, no acute findings within the chest, abdomen or pelvis. Dictated by: Fam Quinn M.D. on 05/26/2024 at 11:47 MDM Narrative Medical decision making narrative: CC: Acute stabbing pain right side front through the tip of her scapula associated with diaphoresis and dyspnea Complicating co-morbidities: No cardiac history, hyperlipidemia, anxiety and depression Data collected from: patient Differential considered: Pneumothorax, dissection, acute coronary syndrome, radicular pain Exam documented above, pertinent findings include: Concerning for the poor color and overall diaphoresis. With moving pain is reproducible but with my palpation pain is not reproducible. Remainder of exam is benign Lab Test results independently reviewed as above. Pertinent findings: CBC is unremarkable Chemistries are reassuring Independently reviewed EKG: Sinus Mauro at a rate of 52. No acute ischemic changes Imaging studies independently reviewed: Chest x-ray does not suggest right-sided pneumothorax, no acute cardiopulmonary abnormalities CT angiogram of the chest abdomen and pelvis shows no significant findings and specifically no evidence of aortic dissection Treatments: IV Toradol, oral Percocet Discussion: 58-year-old woman with acute onset severe right upper chest pain radiating through to her scapula. CT angiogram confirms absence of dissection. No evidence of acute coronary syndrome infection or alternate explanation. I suspect that this is musculoskeletal pain. She did seem to improve with Toradol and a dose of oral Percocet was added. Reviewed anticipated course of recovery including the fact that this may increase in pain over the 1st 48 hours if it is in fact a musculoskeletal etiology. Clearly reviewed all labs and review of imaging studies. At this point there is no indication for hospitalization or further imaging. Questions are answered and she is safe for discharge home Discharge Plan Departure Patient Disposition: Home Clinical Impression: Acute right-sided thoracic back pain Instructions: DI for Musculoskeletal Pain Activity Restrictions/Additional Instructions: Thank you for coming in today We did a very thorough examination for life-threatening things that are going to cause the degree of pain that you are currently experiencing. There was no evidence of infection, collapsed lung, aortic dissection, heart attack or heart attack like syndrome. Your blood work was quite reassuring as were your CT scans. I suspect that this was simply a musculoskeletal injury, in just the right position and take a breath in just the right way and the nerve pain follows. Using 400 mg of ibuprofen (2 [id number] pills) and 1 Tylenol every 6 hours can be very helpful in controlling pain. For severe pain 400 mg of ibuprofen and 1 Percocet can be helpful. Prescription for Percocet was electronically transmitted to [facility] If you are getting worse please feel free to return Prescriptions: New oxycodone-acetaminophen 5-325 mg tablet 1 tab PO Q6H PRN (Reason: pain) Qty: 14 0RF No Action cetirizine [All Day Allergy (cetirizine)] 10 mg tablet 10 mg PO BEDTIME PRN (Reason: congestion) Qty: 20 0RF acyclovir 400 mg tablet 400 mg PO 5XD Qty: 50 1RF propranolol 10 mg tablet 20 mg PO BID PRN (Reason: Situational anxiety) Qty: 30 1RF sertraline 100 mg tablet 100 mg PO DAILY Qty: 30 2RF cholecalciferol (vitamin D3) 50 mcg (2,000 unit) capsule 50 mcg PO .every other day pravastatin 20 mg tablet 20 mg PO DAILY meloxicam 15 mg tablet 15 mg PO DAILY Qty: 90 2RF gabapentin 100 mg capsule 200 mg PO BID PRN (Reason: Neuropathy) Qty: 180 3RF Referrals: Sonny Calvert DO [Primary Care Provider] - Stand Alone Forms: Patient Portal/API
--- NOTE | 2024-05-26 11:11 | DI.CT.S_ITS ---
PROCEDURE: CT ANGIO CHEST ABDOMEN PELVIS INDICATIONS: Concern for acute dissection TECHNIQUE: Precontrast 5 mm thick sections acquired from the lung apices to the iliac crests. After the administration of intravenous contrast, 2.5 mm thick sections again acquired from the lung apices to the iliac crests. Maximum intensity projection (MIP) oblique sagittal and coronal reformats were then acquired. For radiation dose reduction, the following was used: automated exposure control. COMPARISON: [facility], CT, CT ABDOMEN PELVIS W CON, 03/05/2024, 18:10. FINDINGS: Image quality: Diagnostic. AORTA: No aortic aneurysm. No acute aortic syndrome. CHEST: Lower Neck: No enlarged lymph nodes. Thyroid: No thyroid nodules which require sonographic evaluation. Axillae: No enlarged lymph nodes. Chest Wall: Unremarkable. Lungs and Pleura: No pneumothorax or pleural effusions. No consolidation or suspicious nodules. Heart: Heart size is normal. No pericardial effusion. Thoracic Vessels: Pulmonary arteries demonstrate normal size. Mediastinum and Gaby: No enlarged lymph nodes. Esophagus: No wall thickening. No hiatal hernia. ABDOMEN: Liver: No solid mass. Gallbladder: No radiopaque gallstones or wall thickening. Biliary ducts: No biliary dilation. Pancreas: No ductal dilation. Spleen: Size is within normal limits. Adrenal Glands: No adrenal nodules. Kidneys and Ureters: No hydronephrosis. No solid mass. No complex renal cystic lesion which requires follow up. Stomach and Bowel: Wall thickening of the ascending colon. Remainder of the colon and small bowel appears within normal limits. Peritoneum: No abnormal intraperitoneal fluid. No free air. Ventral Wall: No hernia. Abdominal Nodes: No retroperitoneal or mesenteric adenopathy by size criteria. Vessels: Inferior vena cava is normal in size. PELVIS: Pelvic Organs: Unremarkable. Bladder: Unremarkable. Pelvic Nodes: No enlarged lymph nodes. Miscellaneous: No inguinal hernias are seen. Surgical clips within the pelvis. Bones: Mild degenerative changes of the spine. IMPRESSION: 1. No acute aortic syndrome. 2. Wall thickening of the ascending colon. May be secondary to colitis versus decompression. Recommend correlation with age-appropriate colonoscopy screening. 3. Otherwise, no acute findings within the chest, abdomen or pelvis. Dictated by: Fam Quinn M.D. on 05/26/2024 at 11:47 Approved by: Fam Quinn M.D. on 05/26/2024 at 11:54
[2024-05-26 11:16] LABS: NT-proBNP (BNP-Adult 18+) 60 pg/mL (<125); Troponin I < 0.012 ng/mL (0.01-0.034)
[2024-05-26 11:27] LABS: Prothrombin Time 11.5 SECONDS (9.4-12.5)
[2024-05-26 11:30] LABS: PTT Partial Thromboplastin Tim 33 SECONDS (25.1-36.5)
[2024-05-26] MEDS: KETOROLAC 30 MG/ML VIAL 15 MG IV (12:21)
[2024-05-26] MEDS: OXYCODONE/ACETAMINOPHEN 5/325 TABLET 1 TAB PO (13:04)
== END 2024-05-26 13:13 | disposition home or self-care (01) ==
PROVIDERS: Emergency Provider Emergency Medicine; Family Provider Pediatrics; PCP Family Medicine
DX: M54.6 Pain in thoracic spine (principal); R06.02 Shortness of breath; R00.1 Bradycardia, unspecified; R07.9 Chest pain, unspecified
CPT/HCPCS: 71045; 71275; 74174; 80053; 82550; 83690; 83735; 83880; 84484; 85025; 85610; 85730; 93005; 93010; 96374; 99284; J1885; Q9967

== ENCOUNTER → 2024-11-18 09:00 | Outpatient (CLI) | payer OTHER, SELFPAY ==
[2024-11-18 10:39] LABS: Alanine Aminotransferase 19 IU/L (<35); Albumin 4.1 g/dL (3.5-5.0); Albumin Globulin Ratio 1.8 (1.0-2.8); Alkaline Phosphatase 60 U/L (38-126); Aspartate Aminotransferase 22 IU/L (14-36); BUN Creatinine Ratio 26.7 (6-22); Bilirubin Total 0.3 mg/dL (0.2-1.3); Blood Urea Nitrogen 20 mg/dL (7-17); Calcium 9.7 mg/dL (8.4-10.2); Carbon Dioxide 30 mmol/L (22-32); Chloride 104 mmol/L (98-107); Cholesterol 258 mg/dL (140-199); Estimated Glomerular Filt Rate > 60 mL/min (>60); Globulin 2.3 g/dL (1.7-4.1); Glucose 93 mg/dL (80-110); HDL Cholesterol 91 mg/dL (40-60); HEMOLYSIS < 15 (0-50); LDL Cholesterol Calculated 153 mg/dL (<100); Potassium 4.2 mmol/L (3.4-5.1); Sodium 140 mmol/L (137-145); Total Protein 6.4 g/dL (6.3-8.2); Triglycerides 72 mg/dL (35-150)
[2024-11-18 10:53] LABS: Vitamin D 25 Hydroxy (D3) 35.9 ng/mL (30.0-100.0)
[2024-11-18 11:08] LABS: TSH w/ Reflex to FT4 2.28 uIU/mL (0.47-4.68)
== END ==
PROVIDERS: Family Provider Pediatrics; PCP Family Medicine; Referring Provider Family Medicine; Visit Provider Family Medicine
DX: E78.5 Hyperlipidemia, unspecified (principal); E55.9 Vitamin D deficiency, unspecified; F32.9 Major depressive disorder, single episode, unspecified; F41.1 Generalized anxiety disorder; F41.0 Panic disorder [episodic paroxysmal anxiety]
CPT/HCPCS: 36415; 80053; 80061; 82306; 84443

== ENCOUNTER → 2025-03-22 11:27 | Outpatient (CLI) | payer OTHER, SELFPAY ==
--- NOTE | 2025-03-22 11:28 | DI.RAD.S_ITS ---
PROCEDURE: XR CERVICAL SPINE 4V OR 5V INDICATIONS: Cervical pain radiculopathy TECHNIQUE: 5 total views of the cervical spine were acquired, including bilateral oblique views. COMPARISON: [facility], CT, CT ANGIO CHEST ABDOMEN PELVIS, 05/26/2024, 11:27. FINDINGS: Bones: No fractures or dislocations to the C7-T1 level. Oblique images demonstrate no bony foraminal stenoses. Difu-fe-fuleiimb disc space narrowing can be seen at C5-C6, C6-C7, and C7-T1. There is overall straightening of the normal cervical lordosis. No focal AP alignment abnormality is seen. On oblique images, there is dkyw-[id number] neural foraminal narrowing on the left at C5-C6, with mild right-sided neural foraminal narrowing is seen at C6-C7 and C7-T1. Soft tissues: No prevertebral soft tissue swelling. The visualized lung apices are unremarkable. Atherosclerotic calcification of the aortic arch is noted. IMPRESSION: Lower cervical spine degenerative changes are seen by plain film. Straightening of the normal cervical lordosis is seen, which is commonly observed in patients with muscular spasm. If it would be helpful for clinical management decision making, please consider a dedicated cervical spine MRI for further evaluation (assuming that there is no contraindication). Dictated by: Vasiliy Arboleda M.D. on 03/22/2025 at 11:55 Approved by: Vasiliy Arboleda M.D. on 03/22/2025 at 11:57
== END ==
PROVIDERS: Family Provider Pediatrics; PCP Family Medicine; Referring Provider Chiropractor; Visit Provider Chiropractor
DX: M47.22 Other spondylosis with radiculopathy, cervical region (principal)
CPT/HCPCS: 72050

== ENCOUNTER → 2025-06-23 13:33 | Outpatient (CLI) | payer OTHER, SELFPAY ==
[2025-06-23 15:22] LABS: Vitamin B12 255 pg/mL (239-931)
== END ==
PROVIDERS: Family Provider Pediatrics; PCP Family Medicine; Referring Provider Family Medicine; Visit Provider Physician Assistant
DX: M43.6 Torticollis (principal); M54.10 Radiculopathy, site unspecified
CPT/HCPCS: 36415; 82607

== ENCOUNTER → 2025-06-25 07:46 | Outpatient (CLI) | payer OTHER, SELFPAY ==
--- NOTE | 2025-06-25 07:47 | DI.MG.S_ITS ---
MM screening mammo BI: 06/25/2025. BI-RADS: 0 CLINICAL: 59-year old female for bilateral screening mammogram. Tyrer-Cuzick lifetime risk of 39.1%. Current reported family history of breast cancer: sister. The patient had a prior left breast biopsy. PRIOR EXAMS 07/22/2023, 06/25/2022, 10/26/2021, 05/03/2021. MAMMOGRAPHY TECHNIQUE: 2D and 3D (tomosynthesis) digital mammographic views obtained, with additional images as needed for full coverage. Current study was also evaluated with a Computer Aided Detection (CAD) system. DENSITY D. The breasts are extremely dense, which lowers the sensitivity of mammography. MAMMOGRAPHY FINDINGS Right: No suspicious mass, asymmetry, microcalcification, or other abnormality seen. Left: MLO only, Lower, Middle depth: Asymmetry needing additional imaging evaluation. Left: Benign-appearing post-surgical changes noted on the left. IMPRESSION: Right * No evidence of malignancy. Left (Asymmetry): MLO only, Lower, Middle depth * Incomplete - asymmetry needing additional imaging evaluation. RECOMMENDATIONS Left: MLO only, Lower, Middle depth * Further evaluation with diagnostic mammography and diagnostic ultrasound. Ultrasound to be performed only if needed. OVERALL ASSESSMENT CATEGORY BI-RADS-0: Incomplete - Need Additional Imaging Evaluation. ELECTRONICALLY SIGNED: Demetrius Goodrich M.D. on 06/25/2025 at 09:37:26 AM PT Interpreting Station ID: [id number]
== END ==
LOC: MAMMO 07:47
PROVIDERS: Family Provider Pediatrics; PCP Family Medicine; Referring Provider Family Medicine; Visit Provider Family Medicine
DX: Z12.31 Encounter for screening mammogram for malignant neoplasm of breast (principal); R92.343 Mammographic extreme density, bilateral breasts; Z80.3 Family history of malignant neoplasm of breast
CPT/HCPCS: 77063; 77067

== ENCOUNTER → 2025-07-15 11:50 | Outpatient (CLI) | payer OTHER, SELFPAY ==
--- NOTE | 2025-07-15 11:51 | DI.US.S_ITS ---
US breast LT limited, MM diagnostic mammo unilat LT: 07/15/2025 BI-RADS: 2 CLINICAL: 59-year old female for left diagnostic mammogram and left diagnostic breast ultrasound that is a recall from screening on 06/25/2025. Tyrer-Cuzick lifetime risk of 39.1%. Current reported family history of breast cancer: sister. The patient had a prior left breast biopsy. PRIOR EXAMS Mammogram(s): 06/25/2025. Nine Other Exams on 07/22/2023, 06/25/2022, 10/26/2021, 05/03/2021, 04/22/2020. MAMMOGRAPHY TECHNIQUE: 2D and 3D (tomosynthesis) digital mammographic views obtained, with additional images as needed for full coverage. Current study was also evaluated with a Computer Aided Detection (CAD) system. ULTRASOUND TECHNIQUE Real-time bunch scale imaging of the area of clinical interest was performed with image documentation. TARGETED Left Breast Ultrasound: Real-time ultrasound exam was performed focused to area of clinical and/or imaging concern. DENSITY Left: D. The breast is extremely dense, which lowers the sensitivity of mammography. TISSUE COMPOSITION Left: Central, Retroareolar: (c) Heterogeneous-fibroductal. MAMMOGRAPHY FINDINGS Left: MLO only, Central, Middle depth. Previous report: MLO only, Lower: The asymmetry seen on recent screening mammogram did not persist with additional imaging, compatible with benign fibroglandular tissue. There are no suspicious masses, calcifications, or other findings in the breast. ULTRASOUND FINDINGS Left: Central, Retroareolar: There is no sonographic abnormality to account for imaging concern on mammography. IMPRESSION: Left * No evidence of malignancy with benign findings. RECOMMENDATIONS Bilateral * Annual screening mammography. COMMENTS: Findings and recommendations were conveyed to the patient during today's evaluation. According to the Tyrer-Cuzick Risk Assessment Model, based on the information provided your patient has a greater than 20% lifetime risk for developing breast cancer. Consider supplemental screening with breast MRI and participation in a high-risk screening program. OVERALL ASSESSMENT CATEGORY BI-RADS-2: Benign. The [employer] recommends annual screening mammography beginning at age 40 for women with average risk of breast cancer. ELECTRONICALLY SIGNED: Sofi Erazo M.D. on 07/15/2025 at 01:33:43 PM PT Interpreting Station ID: [id number]
== END ==
PROVIDERS: Family Provider Pediatrics; PCP Family Medicine; Referring Provider Family Medicine; Visit Provider Family Medicine
DX: N63.0 Unspecified lump in unspecified breast (principal); R92.342 Mammographic extreme density, left breast; R92.332 Mammographic heterogeneous density, left breast; Z80.3 Family history of malignant neoplasm of breast
CPT/HCPCS: 76642; 77065; G0279

== ENCOUNTER → 2025-07-26 16:11 | Outpatient (CLI) | payer OTHER, SELFPAY ==
--- NOTE | 2025-07-26 16:12 | DI.MRI.S_ITS ---
PROCEDURE: MR CERVICAL SPINE WO CON INDICATIONS: chronic neck pain w/ ride side radiculopathy TECHNIQUE: Noncontrast sagittal T1 spin echo and T2 fast spin echo, sagittal STIR, foraminal oblique sagittal T2 fast spin echo, and axial gradient echo or T2 fast spin echo through the cervical spine. COMPARISON: None. FINDINGS: Image quality: Excellent. Alignment and Curvature: Loss of the normal cervical lordosis. Bone Marrow: Mild degenerative endplate changes. Marrow demonstrates normal overall signal. Spinal Cord: Visualized spinal cord has normal size and signal. No cerebellar tonsillar herniation. Paraspinous Soft Tissues: No paravertebral masses. Prevertebral soft tissues are normal in thickness. C2-C3: Normal appearance. C3-C4: Facet and uncovertebral arthropathy. No central canal stenosis. Mild bilateral neural foraminal stenosis. C4-C5: Disc desiccation and minimal posterior disc osteophyte complex. Facet and uncovertebral arthropathy. No significant central canal or neural foraminal stenosis. C5-C6: Disc desiccation and mild posterior disc osteophyte complex. Facet and uncovertebral arthropathy. No central canal stenosis. Moderate left and mild right neural foraminal stenosis. C6-C7: Disc desiccation and mild posterior disc osteophyte complex. Facet and uncovertebral arthropathy. No central canal stenosis. Mild left neural foraminal stenosis. C7-T1: No central canal or neural foraminal stenosis. IMPRESSION: 1. Multilevel degenerative changes of the cervical spine as described above. 2. No significant central canal stenosis. 3. Moderate left neural foraminal stenosis at C5-C6. Dictated by: Fam Quinn M.D. on 07/26/2025 at 16:56 Approved by: Fam Quinn M.D. on 07/26/2025 at 16:59
== END ==
LOC: MRI 16:11
PROVIDERS: Family Provider Pediatrics; PCP Family Medicine; Referring Provider Physician Assistant; Visit Provider Physician Assistant
DX: M47.22 Other spondylosis with radiculopathy, cervical region (principal); M48.02 Spinal stenosis, cervical region; M54.2 Cervicalgia
CPT/HCPCS: 72141